=== PATIENT | female | born 1965 | race Caucasian/White ===

== ENCOUNTER 2019-09-22 18:44 | Inpatient (IN) | payer OTHER, SELFPAY ==
--- NOTE | ~2019-09-22 | XR_ITS ---
EXAMINATION: XR chest 2V EXAM DATE: 09/22/2019 19:36 INDICATION: High blood sugar. TECHNIQUE: Frontal and lateral projections of the chest obtained and reviewed. Comparison is made to prior examination from 02/05/2016. FINDINGS: The lungs are clear. There are no pleural effusions. The cardiomediastinal silhouette is within normal limits. There is no pneumothorax suspected. The bones and soft tissues are unremarkab le. IMPRESSION: No acute cardiopulmonary findings. Reviewed, dictated and finalized at location A.
[2019-09-22 18:50] VITALS: BP 96/54; PULSE 89; RESP 20; TEMP 37.1; O2SAT 98
[2019-09-22 18:58] LABS: Glucose Point of Care 306 (65-105)
--- NOTE | 2019-09-22 19:04 | ECG_ITS ---
Measurements Intervals [place] Rate: 80 P: 52 MI: 166 QRS: -14 QRSD: 93 T: 1 QT: 403 QTc: 467 Interpretive Statements SINUS RHYTHM DELAYED PRECORDIAL R/S TRANSITION VOLTAGE CRITERIA FOR LVH BORDERLINE T WAVE ABNORMALITY- ANT/INF LEADS BASELINE ARTIFACT- I, II, III, AVR, AVL, AVF, V1-V2 BORDERLINE ECG Electronically Signed On 09-24-2019 7:16:36 CDT by Ever Hamilton D.O.
[2019-09-22] MEDS: ONDANSETRON INJ 4 MG/2 ML VIAL IV PUSH (19:15)
[2019-09-22] MEDS: KETOROLAC 30 MG/ML VIAL (*BKC) IV PUSH (19:17)
[2019-09-22 19:34] LABS: Base Excess ABG -3.9 mmol/L (0-2); Oxygen Content ABG 18.5 %vol (16.0-22.0); Oxygen Saturation ABG 97.2 % (95-97); Oxyhemoglobin 96.5 % (94-100); PCO2 ABG 25.2 mmHg (35-45); PO2 ABG 84.8 mmHg (80-90); Site Drawn RIGHT RADIAL; Total Hemoglobin 13.6 g/dL; pH ABG 7.47 (7.35-7.45)
[2019-09-22 19:35] LABS: Hematocrit 35.9 % (35.0-49.0); Hemoglobin 12.8 g/dL (12.0-15.0); Immature Platelet Fraction Pct 5.3 % (1.0-7.0); Mean Corpuscular HGB Conc 35.7 g/dL (32.0-36.0); Mean Corpuscular Hemoglobin 29.8 pg (27.0-31.0); Mean Corpuscular Volume 83.7 fL (78.0-102.0); Mean Platelet Volume 11.4 fl (9.2-11.8); Platelet Count Result 73 K/mm3 (150-420); Red Blood Count 4.29 M/mm3 (4.20-5.40); Red Cell Distribution Width 13.5 % (11.6-14.4); White Blood Count 8.8 K/mm3 (4.8-10.8)
[2019-09-22 19:35] LABS: Device ROOM AIR; Modified Allen's Test Pass
[2019-09-22] MEDS: SODIUM CHLORIDE 0.9% IV 1,000 ML 999 ML IV CONT ×2 (19:36→21:46)
[2019-09-22 19:50] LABS: Alanine Aminotransferase 29 U/L (14-59); Albumin Level 2.6 g/dL (3.4-5.0); Alkaline Phosphatase 136 U/L (46-116); Aspartate Amino Transferase 27 U/L (15-37); Bilirubin,Total 1.5 mg/dL (0.00-1.00); Blood Urea Nitrogen 50 mg/dL (7-18); Calcium 8.2 mg/dL (8.5-10.1); Carbon Dioxide 23 mmol/L (21-32); Chloride 86 mmol/L (98-108); Estimated CRCL calculation 28 ml/min; Estimated Glomerular Filt Rate 26; Glucose 304 mg/dL (70-99); Magnesium 1.9 mg/dL (1.8-2.4); Osmolality Calculated 282 mOsm/kg (285-295); Phosphorus 2.6 mg/dL (2.6-4.7); Sodium 124 mmol/L (136-145)
[2019-09-22 19:55] LABS: Band Neutrophils Percent 8 % (0-6); Basophils Percent Manual 0 % (0-1); Eosinophils Absolute Manual 0.08 K/mm3 (0.02-0.5); Eosinophils Percent Manual 1 % (1-6); Lymphocytes Absolute Manual 0.44 K/mm3 (1.1-4.5); Lymphocytes Percent Manual 5 % (18-44); Monocytes Absolute Manual 0.96 K/mm3 (0.1-0.90); Monocytes Percent Manual 11 % (3-9); Neutrophils Percent Manual 75 % (46-73); Platelet Estimate Decreased (Adequate); Total Cells Counted 100
[2019-09-22 19:56] LABS: Lactic Acid 4.8 mmol/L (0.4-2.0)
--- NOTE | 2019-09-22 19:56 | ED.GENADULT ---
HPI - General Adult General Chief complaint: Medical Clearance Stated complaint: headache, nausea History of Present Illness HPI narrative: this is a 54-year-old female with history of diabetes presents with nausea vomiting and episode of diarrhea with a headache that she rates at 8/10, and 2 or 3 days ago with nausea and vomiting others currently no abdominal pain there is some according to patient subjective fever at home currently afebrile here in the emergency department denies chest pain no shortness of breath, there is no blurry vision no neurological deficits patient has had a higher blood sugar at home and recurrent blood sugar level is 306, with a blood pressure of 96/54. and a brain surgery for a AVM approximately 10 years ago. Onset (ago): hour(s) Location: head ( Headache) Severity: moderate Severity scale (1-10): 8 Quality: dull Relieving factors: none Exacerbating factors: none Associated symptoms: headaches, loss of appetite and nausea/vomiting Treatments prior to arrival: none Related Data Home Medications Medication Instructions Recorded Confirmed citalopram 20 mg PO DAILY 09/22/19 09/22/19 levothyroxine 112 mcg PO DAILY 09/22/19 09/22/19 lisinopril-hydrochlorothiazide 1 tablet PO DAILY 09/22/19 09/22/19 metformin 500 mg PO BID 09/22/19 09/22/19 Allergies Allergy/AdvReac Type Severity Reaction Status Date / Time Sulfa (Sulfonamide AdvReac Unknown Verified 09/22/19 19:12 Antibiotics) [facility] Past Medical History Medical History (Updated 09/22/19 @ 20:19 by Thomas Castaneda MD) Diabetes mellitus HTN (hypertension) Hypothyroidism (acquired) Exam Const: General: no acute distress Orientation/consciousness: patient oriented x3 HENMT: Head: normal to inspection Eyes: Conjunctivae: conjunctivae normal Pupils: Equal, round and reactive pupils present EOM: EOMs intact bilaterally Neck: Neck: normal visual inspection Chest: Chest palpation & inspection: normal inspection of the chest Resp: Effort & Inspection: normal respiratory effort Auscultation: clear to auscultation bilaterally Cardio: Rate: regular rate Rhythm: regular rhythm GI: GI Palp: Yes Soft to palpation Percussion: Yes normal to percussion Auscultation: normal bowel sounds : General: Yes no CVA tenderness Urinary Catheter: Urinary Catheter: patent and draining Back/Spine/Pelvis: Back: no CVA tenderness Skin: General skin exam: normal color Rashes: no rashes Neuro: General: patient oriented x3, moves all extremities, no meningeal signs and no focal motor deficits Extrem: General: normal to inspection Psych: Mental Status: mental status grossly normal Course Course Emergency Course: Reassessment of patient headache is some marginally better from an 8/10 to about a 6/10 nausea is improved her blood pressure systolic is in the mid 90s currently the patient appears more comfortable and discussed the fact that she needs to be admitted because of her low potassium, and her low sodium. Vital Signs Vital signs: Vital Signs Temperature 37.1 C 09/22/19 18:50 Pulse Rate 89 09/22/19 18:50 Respiratory Rate 20 09/22/19 18:50 Blood Pressure 96/54 L 09/22/19 18:50 Pulse Oximetry 98 09/22/19 18:50 Temperature 37.1 C 09/22/19 18:50 Pulse Rate 89 09/22/19 18:50 Respiratory Rate 20 09/22/19 18:50 Blood Pressure 96/54 L 09/22/19 18:50 Pulse Oximetry 98 09/22/19 18:50 Medical Decision Making Vital Signs Vital Signs: Vital Signs Temperature 37.1 C 09/22/19 18:50 Pulse Rate 89 09/22/19 18:50 Respiratory Rate 20 09/22/19 18:50 Blood Pressure 96/54 L 09/22/19 18:50 Pulse Oximetry 98 09/22/19 18:50 Temperature 37.1 C 09/22/19 18:50 Pulse Rate 89 09/22/19 18:50 Respiratory Rate 20 09/22/19 18:50 Blood Pressure 96/54 L 09/22/19 18:50 Pulse Oximetry 98 09/22/19 18:50 Lab Data Lab results reviewed: Yes I reviewed the patient's lab results. Res
[2019-09-22 19:58] LABS: Thyroid Stimulating Hormone 2.93 uIU/mL (0.36-3.74); Troponin I < 0.02 ng/mL (0.00-0.056)
--- NOTE | 2019-09-22 20:04 | PC.NURSE ---
pt resting eyes closed, fan on per request
[2019-09-22 20:11] VITALS: BP 94/48; PULSE 81; RESP 18; TEMP 37.1; O2SAT 97
--- NOTE | 2019-09-22 20:25 | ADMGEN ---
This patient, Rosemary Romeo, was admitted to 2nd Floor Room 203-2. Patient/family oriented to hospital policies and general routines including ID bracelet, bed and alarms, visiting hours, pain management, procedures, bathroom and other care routines, personal items, smoking policy, room service/diet, and visiting hours. Valuables list has been completed. Information on how to activate the Rapid Response Team has been discussed. Patient/Family are encouraged to report perceived risks to care and to ask questions if they do not understand what they are told or what they should do.
[2019-09-22 20:30] VITALS: PULSE 80
[2019-09-22] MEDS: KCL 20 MEQ/SW 100 ML 100 ML 50 MEQ IVPB (20:57)
[2019-09-22] MEDS: POTASSIUM CHLORIDE 20 MEQ TABLET 40 MEQ PO (21:00)
[2019-09-22 21:09] VITALS: BP 99/56; PULSE 78; RESP 18; TEMP 36.3; O2SAT 99
[2019-09-22 21:12] VITALS: BMI 33.7
[2019-09-22 21:34] LABS: Glucose Point of Care 259 (65-105)
[2019-09-22 22:29] LABS: Add Urine Microscopic? YES; Appearance Urine Cloudy (Clear); Bilirubin Urine Negative (Negative); Blood Urine 3+ (Negative); Color Urine Yellow (Yellow); Glucose Urine UA Trace (Negative); Ketones Urine Negative (Negative); Leukocyte Esterase Ur 3+ (Negative); Nitrate Urine Negative (Negative); Protein Urine 2+ (Negative); pH Urine 5.5 (5.0-8.0)
[2019-09-22 22:37] LABS: Bacteria Urine 3+ /hpf; Squamous Epithelial Cell Urine Moderate /hpf (Few); WBC Urine >75 /hpf (0-3)
[2019-09-22 22:38] LABS: Mucus Urine None seen /lpf; White Blood Cell Casts Urine Present /lpf
[2019-09-22] MEDS: SODIUM CHLORIDE 0.9% IV 1,000 ML 100 ML IV CONT (23:22)
[2019-09-22 23:31] VITALS: BP 105/57; PULSE 63; RESP 18; TEMP 36.7; O2SAT 96
[2019-09-22 23:47] VITALS: PULSE 85
[2019-09-23 04:00] VITALS: BP 98/49; PULSE 78; PULSE 80; RESP 20; TEMP 36.6; O2SAT 99
[2019-09-23] MEDS: LEVOTHYROXINE SODIUM 112 MCG TABLET PO (05:44)
[2019-09-23 05:53] LABS: Hematocrit 38.7 % (35.0-49.0); Hemoglobin 13.3 g/dL (12.0-15.0); Immature Platelet Fraction Pct 4.5 % (1.0-7.0); Mean Corpuscular HGB Conc 34.4 g/dL (32.0-36.0); Mean Corpuscular Hemoglobin 29.6 pg (27.0-31.0); Mean Corpuscular Volume 86.2 fL (78.0-102.0); Mean Platelet Volume 11.7 fl (9.2-11.8); Platelet Count Result 70 K/mm3 (150-420); Red Blood Count 4.49 M/mm3 (4.20-5.40); Red Cell Distribution Width 13.6 % (11.6-14.4); White Blood Count 7.5 K/mm3 (4.8-10.8)
[2019-09-23 06:04] LABS: Lactic Acid Reflex 2.1 mmol/L (0.4-2.0)
[2019-09-23 06:15] LABS: Alanine Aminotransferase 29 U/L (14-59); Albumin Level 2.4 g/dL (3.4-5.0); Alkaline Phosphatase 138 U/L (46-116); Anion Gap 16.8 mmol/L (7-16); Aspartate Amino Transferase 28 U/L (15-37); Bilirubin,Total 1.1 mg/dL (0.00-1.00); Blood Urea Nitrogen 46 mg/dL (7-18); Calcium 7.6 mg/dL (8.5-10.1); Carbon Dioxide 22 mmol/L (21-32); Chloride 95 mmol/L (98-108); Estimated CRCL calculation 39 ml/min; Estimated Glomerular Filt Rate 36; Glucose 269 mg/dL (70-99); Osmolality Calculated 290 mOsm/kg (285-295); Potassium 3.8 mmol/L (3.5-5.1); Sodium 130 mmol/L (136-145); Total Protein 6.2 g/dL (6.4-8.2)
[2019-09-23 07:04] LABS: Band Neutrophils Percent 5 % (0-6); Eosinophils Absolute Manual 0.07 K/mm3 (0.02-0.5); Eosinophils Percent Manual 1 % (1-6); Lymphocytes Absolute Manual 0.75 K/mm3 (1.1-4.5); Lymphocytes Percent Manual 10 % (18-44); Monocytes Absolute Manual 0.75 K/mm3 (0.1-0.90); Monocytes Percent Manual 10 % (3-9); Neutrophils Absolute Manual 5.92 K/mm3 (1.7-7.2); Neutrophils Percent Manual 74 % (46-73); Platelet Estimate Decreased (Adequate); Total Cells Counted 100
[2019-09-23 07:51] VITALS: BP 91/53; PULSE 79; RESP 18; TEMP 36.4; O2SAT 96
[2019-09-23 07:51] LABS: Reflex Lactic Acid Yes or No No Lactic Reflex
[2019-09-23] MEDS: CITALOPRAM HYDROBROMIDE 20 MG TABLET PO (08:27)
[2019-09-23] MEDS: POTASSIUM CHLORIDE 20 MEQ PACKET (FOR LIQUID) 40 MEQ PO (08:28)
[2019-09-23] MEDS: SODIUM CHLORIDE 0.9% IV 1,000 ML 100 ML IV CONT ×2 (10:06→19:30)
[2019-09-23 11:26] VITALS: BP 101/54; PULSE 77; RESP 18; TEMP 36.4; O2SAT 96
[2019-09-23 11:26] LABS: Glucose Point of Care 293 (65-105)
--- NOTE | 2019-09-23 12:22 | PM.IMHP ---
H&P: HPI History of Present Illness Chief complaint: headache, nausea Narrative: Rosemary Romeo is a 54 year old female that presented with n/v, diarrhea and hyperglycemia. she has a hx of DM, HTN and hypothyroidism. According to patient she went out of time on Tuesday for work and started feeling bad. According to patient it started with a bad headache.She returned home the following day and was unable to eat due to n/v, she also developed diarrhea , with a subjective fever , fatigue and a elevated BS. by tuesday her condition did not improve so she decided to go to ED. While in the Ed patient bs was greater than 300, with abnormal electrolytes. Her lactic acid and anion gap was elevated. Her UA indicated glucose, protein, leukocytes and bacteria. She did admit to urine frequence .Her cxr was unremarkable . her vital signs are as followed 91/53,79,18,97.6,96% ra. She is being admitted for gastroenteritis, dehydration and hyperglemia. At this time she denies any n/v since admission, sob, cp , headache, diarrhea or abd pain. Patient will possible discharge tomorrow. Her condition is improving. Review of Systems Constitutional: Constitutional: Reports fatigue, Reports fever(s), Reports headache(s), Reports lethargy, Reports poor appetite and Reports weakness Cardiovascular: Cardiovascular: Reports no additional cardiovascular complaints, Denies chest pain, Denies dyspnea and Denies dyspnea on exertion Respiratory: Respiratory: Reports no additional respiratory complaints, Denies chest congestion, Denies cough and Denies dyspnea on exertion Gastrointestinal: Gastrointestinal: Reports change in bowel habits, Denies constipation, Reports diarrhea, Reports nausea, Reports vomiting and Denies hematemesis Genitourinary: Genitourinary: Denies hematuria, Denies dysuria, Denies urinary incontinence, Reports urinary hesitancy and Reports urinary urgency Musculoskeletal: Musculoskeletal: Reports no additional musculoskeletal complaints, Denies back pain and Denies arthralgias Integumentary/Breasts: Skin/Breast: Reports system reviewed and no additional complaints, except as docu Neurologic: Reports system reviewed and no additional complaints, except as documented, Denies burning sensations, Denies confusion, Denies vertigo, Denies dizziness, Denies syncope and Denies frequent falls Psychiatric: Psychiatric: Reports no additional psychiatric complaints, Denies anxiety, Denies confusion and Denies depression Endocrine: Endocrine: Reports no additional endocrine complaints, Reports fatigue, Denies polyphagia, Denies polydipsia and Reports polyuria Hematologic/Lymphatic: Hematologic/Lymphatic: Reports no additional hematologic/lymphatic complaints Allergic/Immunologic: Allergic/Immunologic: Reports no additional allergic/immunologic complaints PMF Social History Social History Smoking status: Never smoker Second hand tobacco smoke exposure: Yes Alcohol intake: never Substance use: never Gender identity (if verbalized by the patient): Female Spiritual care concerns: No Meds Home Medications and Allergies Home Medications Medication Instructions Recorded Confirmed Type citalopram 20 mg PO DAILY 09/22/19 09/22/19 History levothyroxine 112 mcg PO DAILY 09/22/19 09/22/19 History lisinopril-hydrochlorothiazide 1 tablet PO DAILY 09/22/19 09/22/19 History metformin 500 mg PO BID 09/22/19 09/22/19 History Allergies Allergy/AdvReac Type Severity Reaction Status Date / Time Sulfa (Sulfonamide AdvReac Unknown Verified 09/22/19 19:12 Antibiotics) Vital Signs Vital Signs - 24 hr 09/22/19 18:50 09/22/19 20:11 09/22/19 20:30 Temperature 98.7 F 98.7 F Pulse Rate 89 81 80 Respiratory Rate 20 18 Blood Pressure 96/54 L 94/48 L Pulse Oximetry 98 97 09/22/19 21:09 09/22/19 23:31 09/22/19 23:47 Temperature 97.3 F L 98.1 F Pulse Rate 78 63 85 Respiratory Rate 18
--- NOTE | 2019-09-23 15:34 | PC.NURSE ---
Warm blanket given, denies needs, water refilled at this time, fluids infusing
[2019-09-23 15:35] VITALS: BP 105/55; PULSE 79; PULSE 80; RESP 18; TEMP 36.4; O2SAT 95
[2019-09-23 16:47] LABS: Glucose Point of Care 308 (65-105)
--- NOTE | 2019-09-23 18:38 | PC.NURSE ---
Resting quietly, up independent to bathroom as needed, no n/v, appetite fair, telemetry noted SR, personal items and call light inr each
[2019-09-23 18:58] LABS: Lactic Acid 1.5 mmol/L (0.4-2.0)
[2019-09-23 20:00] VITALS: BP 116/60; PULSE 86; RESP 18; TEMP 36.4; O2SAT 98
--- NOTE | 2019-09-23 20:02 | PM.EVENT ---
Event Note Event Note Event Note: Patient states she feels much better today although she is still having some abdominal discomfort and diarrhea. states her headache is all but resolved. She has been eating and drinking today. Alert and oriented. Mucous membranes moist. Regular rate and rhythm without murmur or gallop. Lungs clear to auscultation. mild diffuse abdominal tenderness without guarding, rebound or distention. Continues to have lactic acidosis and azotemia. Continue IV fluids. Recheck lactic acid later today. I have reviewed the chart and examined the patient. I discussed the patient with Shanice Cameron APN and agree with her assessment plan.
[2019-09-23] MEDS: ZOLPIDEM TARTRATE 5 MG TABLET PO (20:24)
[2019-09-23 21:18] LABS: Glucose Point of Care 302 (65-105)
[2019-09-24] VITALS: BP 121/64; PULSE 86; RESP 18; TEMP 36.6; O2SAT 98
[2019-09-24 04:00] VITALS: BP 130/70; PULSE 84; RESP 18; TEMP 36.5; O2SAT 98
[2019-09-24 05:32] LABS: Hematocrit 33.5 % (35.0-49.0); Hemoglobin 11.7 g/dL (12.0-15.0); Immature Platelet Fraction Pct 3.5 % (1.0-7.0); Mean Corpuscular HGB Conc 34.9 g/dL (32.0-36.0); Mean Corpuscular Hemoglobin 29.2 pg (27.0-31.0); Mean Corpuscular Volume 83.5 fL (78.0-102.0); Mean Platelet Volume 11.4 fl (9.2-11.8); Platelet Count Result 89 K/mm3 (150-420); Red Blood Count 4.01 M/mm3 (4.20-5.40); Red Cell Distribution Width 13.4 % (11.6-14.4); White Blood Count 8.8 K/mm3 (4.8-10.8)
[2019-09-24] MEDS: LEVOTHYROXINE SODIUM 112 MCG TABLET PO (05:44)
[2019-09-24] MEDS: SODIUM CHLORIDE 0.9% IV 1,000 ML 100 ML IV CONT (05:45)
[2019-09-24 05:58] LABS: Alanine Aminotransferase 29 U/L (14-59); Albumin Level 2.2 g/dL (3.4-5.0); Alkaline Phosphatase 148 U/L (46-116); Anion Gap 15.4 mmol/L (7-16); Aspartate Amino Transferase 34 U/L (15-37); Bilirubin,Total 0.9 mg/dL (0.00-1.00); Blood Urea Nitrogen 23 mg/dL (7-18); Calcium 7.6 mg/dL (8.5-10.1); Carbon Dioxide 22 mmol/L (21-32); Chloride 94 mmol/L (98-108); Estimated CRCL calculation 57 ml/min; Estimated Glomerular Filt Rate 58; Glucose 252 mg/dL (70-99); Magnesium 1.9 mg/dL (1.8-2.4); Osmolality Calculated 278 mOsm/kg (285-295); Potassium 3.4 mmol/L (3.5-5.1); Sodium 128 mmol/L (136-145); Total Protein 5.7 g/dL (6.4-8.2)
[2019-09-24 05:59] LABS: Lactic Acid 1.7 mmol/L (0.4-2.0)
--- NOTE | 2019-09-24 06:09 | PC.NURSE ---
Lab called to report blood culture results on patient.
--- NOTE | 2019-09-24 06:14 | PC.NURSE ---
Dr. Storm notified of pt's blood culture results. No new orders at this time.
[2019-09-24 07:42] LABS: Glucose Point of Care 272 (65-105)
[2019-09-24 08:00] VITALS: BP 132/70; PULSE 82; PULSE 86; RESP 16; TEMP 36.4; O2SAT 97
[2019-09-24] MEDS: CITALOPRAM HYDROBROMIDE 20 MG TABLET PO (08:22)
[2019-09-24] MEDS: LORATADINE 10 MG TABLET PO (08:22)
[2019-09-24] MEDS: POTASSIUM CHLORIDE 20 MEQ PACKET (FOR LIQUID) 40 MEQ PO (08:30)
[2019-09-24] MEDS: LORATADINE 10 MG TABLET (09:45)
[2019-09-24] MEDS: LOPERAMIDE HCL 2 MG CAPSULE 4 MG PO (09:45)
[2019-09-24] MEDS: POTASSIUM CHLORIDE 20 MEQ TABLET 40 MEQ (09:45)
--- NOTE | 2019-09-24 10:21 | P.DS_ITS ---
DS: Admitting Diagnosis Admitting Diagnosis Admitting Diagnosis: Dehydration, UTI, gastroenteritis <YANA Suazo-C - Last Filed: 09/24/19 10:34> DS: Discharge Diagnosis Discharge Diagnosis (1) Acute dehydration: Code(s): E86.0 - Dehydration <YANA Suazo-C - Last Filed: 09/24/19 10:34> Status: Acute <YANA Suazo-C - Last Filed: 09/24/19 10:34> Assessment and Plan: * secondary to n/v/d causes by gastroenteritis * resolved * encourage po intake <Prasanna Cameron TRACK SUPERINTENDENT-C - Last Filed: 09/24/19 10:34> (2) Acute renal failure: Qualifiers: Acute renal failure type: unspecified Qualified Code(s): N17.9 - Acute kidney failure, unspecified <Prasanna Cameron YANA-C - Last Filed: 09/24/19 10:34> Code(s): N17.9 - Acute kidney failure, unspecified <Prasanna Cameron YANA-C - Last Filed: 09/24/19 10:34> Status: Acute <Prasanna Cameron YANA-C - Last Filed: 09/24/19 10:34> Assessment and Plan: * secondary to dehydration * renal function has improved since admission * <Prasanna Cameron YANA-C - Last Filed: 09/24/19 10:34> (3) Acute hypokalemia: Code(s): E87.6 - Hypokalemia <Prasanna Cameron YANA-C - Last Filed: 09/24/19 10:34> Status: Acute <Prasanna Cameron YANA-C - Last Filed: 09/24/19 10:34> Assessment and Plan: * discharge with 5day of potassium <Prsaanna Cameron YANA-C - Last Filed: 09/24/19 10:34> (4) Hypothyroidism (acquired): Code(s): E03.9 - Hypothyroidism, unspecified <Prasanna Cameron TRACK SUPERINTENDENT-C - Last Filed: 09/24/19 10:34> Status: Acute <Prasanna Cameron TRACK SUPERINTENDENT-C - Last Filed: 09/24/19 10:34> Assessment and Plan: * cont levothyroxine <YANA Suazo-C - Last Filed: 09/24/19 10:34> (5) HTN (hypertension): Code(s): I10 - Essential (primary) hypertension <Prasanna Cameron YANA-C - Last Filed: 09/24/19 10:34> Status: Acute <YANA Suazo-C - Last Filed: 09/24/19 10:34> Assessment and Plan: * stable <Prasanna Cameron YANA-C - Last Filed: 09/24/19 10:34> (6) Diabetes mellitus: Code(s): E11.9 - Type 2 diabetes mellitus without complications <Prasanna Cameron YANA-C - Last Filed: 09/24/19 10:34> Status: Acute <Prasanna Cameron YANA-C - Last Filed: 09/24/19 10:34> Assessment and Plan: * patient will follow-up with primary care physician for insulin adjustments <Prasanna Cameron YANA-C - Last Filed: 09/24/19 10:34> (7) UTI (urinary tract infection): Code(s): N39.0 - Urinary tract infection, site not specified <Prasanna Cameron YANA-C - Last Filed: 09/24/19 10:34> Status: Acute <Prasanna Cameron YANA-C - Last Filed: 09/24/19 10:34> Assessment and Plan: * UA with leukocytes, and bacterial * patient will discharge with Macrobid * UA culture pending <Prasanna Cameron YANA-C - Last Filed: 09/24/19 10:34> (8) Gastroenteritis: Code(s): K52.9 - Noninfective gastroenteritis and colitis, unspecified <Prasanna Cameron YANA-C - Last Filed: 09/24/19 10:34> Status: Acute <Prasanna Cameron TRACK SUPERINTENDENT-C - Last Filed: 09/24/19 10:34> Assessment and Plan: * patient labs have normalized * discharge with Zofran <Prasanna Cameron, TRACK SUPERINTENDENT-C - Last Filed: 09/24/19 10:34> DS: Summary Hospital Course Hospital Course: H&P from admission on 09/21 Narrative: Rosemary Romeo is a 54 year old female that presented with n/v, d
--- NOTE | 2019-09-24 10:21 | PM.DS ---
DS: Admitting Diagnosis Admitting Diagnosis Admitting Diagnosis: Dehydration, UTI, gastroenteritis <YANA Suazo-C - Last Filed: 09/24/19 10:34> DS: Discharge Diagnosis Discharge Diagnosis (1) Acute dehydration: Code(s): E86.0 - Dehydration <YANA Suazo-C - Last Filed: 09/24/19 10:34> Status: Acute <YANA Suazo-C - Last Filed: 09/24/19 10:34> Assessment and Plan: secondary to n/v/d causes by gastroenteritis resolved encourage po intake <Prasanna Cameron CHIEF METER READER-C - Last Filed: 09/24/19 10:34> (2) Acute renal failure: Qualifiers: Acute renal failure type: unspecified Qualified Code(s): N17.9 - Acute kidney failure, unspecified <Prasanna Cameron YANA-C - Last Filed: 09/24/19 10:34> Code(s): N17.9 - Acute kidney failure, unspecified <Prasanna Cameron CHIEF METER READER-C - Last Filed: 09/24/19 10:34> Status: Acute <Prasanna Cameron CHIEF METER READER-C - Last Filed: 09/24/19 10:34> Assessment and Plan: secondary to dehydration renal function has improved since admission <Prasanna Cameron YANA-C - Last Filed: 09/24/19 10:34> (3) Acute hypokalemia: Code(s): E87.6 - Hypokalemia <Prasanna Cameron YANA-C - Last Filed: 09/24/19 10:34> Status: Acute <Prasanna Cameron CHIEF METER READER-C - Last Filed: 09/24/19 10:34> Assessment and Plan: discharge with 5day of potassium <Prasanna Cameron CHIEF METER READER-C - Last Filed: 09/24/19 10:34> (4) Hypothyroidism (acquired): Code(s): E03.9 - Hypothyroidism, unspecified <Prasanna Cameron CHIEF METER READER-C - Last Filed: 09/24/19 10:34> Status: Acute <Prasanna Cameron CHIEF METER READER-C - Last Filed: 09/24/19 10:34> Assessment and Plan: cont levothyroxine <Prasanna Cameron YANA-C - Last Filed: 09/24/19 10:34> (5) HTN (hypertension): Code(s): I10 - Essential (primary) hypertension <Prasanna Cameron YANA-C - Last Filed: 09/24/19 10:34> Status: Acute <Prasanna Cameron YANA-C - Last Filed: 09/24/19 10:34> Assessment and Plan: stable <YANA Suazo-C - Last Filed: 09/24/19 10:34> (6) Diabetes mellitus: Code(s): E11.9 - Type 2 diabetes mellitus without complications <Prasanna Cameron YANA-C - Last Filed: 09/24/19 10:34> Status: Acute <Prasanna Cameron YANA-C - Last Filed: 09/24/19 10:34> Assessment and Plan: patient will follow-up with primary care physician for insulin adjustments <Prasanna Cameron YANA-C - Last Filed: 09/24/19 10:34> (7) UTI (urinary tract infection): Code(s): N39.0 - Urinary tract infection, site not specified <Prasanna Cameron YANA-C - Last Filed: 09/24/19 10:34> Status: Acute <Prasanna Cameron YANA-C - Last Filed: 09/24/19 10:34> Assessment and Plan: UA with leukocytes, and bacterial patient will discharge with Macrobid UA culture pending <Prasanna Cameron YANA-C - Last Filed: 09/24/19 10:34> (8) Gastroenteritis: Code(s): K52.9 - Noninfective gastroenteritis and colitis, unspecified <Prasanna Cameron CHIEF METER READER-C - Last Filed: 09/24/19 10:34> Status: Acute <Prasanna Cameron YANA-C - Last Filed: 09/24/19 10:34> Assessment and Plan: patient labs have normalized discharge with Zofran <Prasanna Cameron CHIEF METER READER-C - Last Filed: 09/24/19 10:34> DS: Summary Hospital Course Hospital Course: H&P from admission on 09/21 Narrative: Rosemary Romeo is a 54 year old female that presented with n/v, diarrhea and hyperglycemia. she has a hx of DM, HTN and hypothyroidism. According to patient she went out of time on Tuesday for work and started feeling bad. According to patient it started with a bad headache.She returned home the following day and was unable to eat due to n/v, she also developed diarrhea , with a subjective fever , fatigue and a elevated BS. by tuesday
--- NOTE | 2019-09-24 10:50 | PC.NURSE ---
discharge instructions given. pt voiced understanding. questions answered. pt attempted to call for a ride. unable to get ahold of at this time. pt will attempt in a few minutes.
[2019-09-28 07:06] LABS: Reference Lab Test Name Beta-Hydroxybutyrate
== END 2019-09-24 11:00 | disposition home or self-care (01) | DRG 683 ==
LOC: CHSED 20:12 → CHS2ND 20:13
PROVIDERS: Nurse Practitioner; Admitting Provider Emergency Medicine; Emergency Provider Emergency Medicine; Visit Provider Emergency Medicine
DX: N17.9 Acute kidney failure, unspecified (principal); N39.0 Urinary tract infection, site not specified; R78.81 Bacteremia; E87.1 Hypo-osmolality and hyponatremia; E86.0 Dehydration; E87.6 Hypokalemia; I10 Essential (primary) hypertension; E03.9 Hypothyroidism, unspecified; E11.65 Type 2 diabetes mellitus with hyperglycemia
CPT/HCPCS: 36415; 36600; 71046; 80053; 81001; 82010; 82805; 83605; 83735; 84100; 84443; 84484; 85025; 85027; 85055; 87040; 87077; 87086; 87088; 87186; 93005; 96361; 96374; 96375; 99285; A9270; J0696; J1815; J1885; J2405; J3480; J7030

== ENCOUNTER 2022-05-12 07:30 | Emergency (ER) | payer OTHER, SELFPAY ==
[2022-05-12 07:31] VITALS: BP 128/84; PULSE 84; RESP 16; TEMP 36.3; O2SAT 98
--- NOTE | 2022-05-12 07:37 | ED.EPISTAXIS ---
HPI - Epistaxis General Stated complaint: Rhinorocket removal Time Seen by Provider: 05/12/22 07:37 Source: patient and RN notes reviewed Mode of arrival: ambulatory Limitations: no limitations History of Present Illness HPI Narrative: patient had a rhino rocket placed on Tuesday night. Her PCP office was concerned about her history of liver failure and low platelets that they did want want to pull it out in the office. Location: left nostril Onset (ago): day(s) (2) Duration: intermittent Context: history of previous Related Data Home Medications Medication Instructions Recorded Confirmed citalopram 20 mg tablet 20 mg PO DAILY 09/22/19 09/22/19 levothyroxine 112 mcg tablet 112 mcg PO DAILY 09/22/19 09/22/19 lisinopril 20 1 tablet PO DAILY 09/22/19 09/22/19 mg-hydrochlorothiazide 25 mg tablet metformin 500 mg tablet 500 mg PO BID 09/22/19 09/22/19 Allergies Allergy/AdvReac Type Severity Reaction Status Date / Time Sulfa (Sulfonamide AdvReac Unknown Verified 09/22/19 19:12 Antibiotics) Review of Systems Review of Systems: All systems reviewed & are unremarkable except as noted in HPI and below PMFSH Past Medical History Medical History (Updated 05/12/22 @ 07:52 by Elroy Hager MD) Acute renal failure Diabetes mellitus HTN (hypertension) Hypothyroidism (acquired) Liver failure Surgical History Surgical History (Updated 05/12/22 @ 07:48 by Elroy Hager MD) AVM (arteriovenous malformation) 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 Social History Social History Smoking status: Never smoker Second hand tobacco smoke exposure: Yes Alcohol intake: never Substance use: never Gender identity (if verbalized by the patient): Female Spiritual care concerns: No Exam Const: General: healthy appearing, no acute distress and alert Nutritional Appearance: well nourished and obese Orientation/consciousness: patient oriented x3 Limitations: no limitations HENMT: Head: normal to inspection Ears: external ears normal Face/Nose/Sinus: Epistaxis present on the left anterior source and active bleeding Face and sinus: normal facial exam Mouth: Yes Normal oral and palatal mucosa present and Yes moist mucous membranes Eyes: Conjunctivae: conjunctivae normal Pupils: Equal, round and reactive pupils present EOM: EOMs intact bilaterally Neck: Neck: normal visual inspection Resp: Effort & Inspection: normal respiratory effort Auscultation: clear to auscultation bilaterally Cardio: Rate: regular rate Rhythm: regular rhythm GI: GI Palp: Yes Soft to palpation and No Tenderness to palpation present (GI) Auscultation: normal bowel sounds Back/Spine/Pelvis: Cervical Spine: cervical ROM normal Thoracic/Lumbar Spine: thoraco-lumbar ROM normal Skin: General skin exam: normal color Rashes: no rashes Neuro: General: patient oriented x3, moves all extremities, no focal motor deficits and CN's II-XI intact bilaterally Speech: normal speech Gait exam (Neuro): Normal gait present Extrem: General: normal to inspection and no clubbing, cyanosis or edema Psych: Mental Status: mental status grossly normal Affect: normal affect Attitude: cooperative Course Course Emergency Course: Hi deflated the balloon of her rhino rocket with a 10 mL syringe. She started having some active bleeding again. The saline was replaced and then a saline flush was used to add another 2 mL for a total of 7 mL of saline into the rhino rocket balloon. Patient advised to see her primary care or call ENT for further evaluation. Vital Signs Vital signs: Vital Signs Temperature 36.3 C L 05/12/22 07:31 Pulse Rate 84 05/12/22 07:31 Respiratory Rate 16 05/12/22 07:31 Blood Pressure 128/84 05/12/22 07:31 Pulse Oximetry 98 05/12/22 07:31 Oxygen Delivery Room Air 05/12/22 07:31 Temperature 36.3 C L 05/12/22 07:31 Pulse Rate 84 05/12/22 07:31 Respirator
[2022-05-12 07:55] VITALS: BP 128/84; PULSE 84; RESP 16; TEMP 36.3; O2SAT 98
== END 2022-05-12 08:03 | disposition home or self-care (01) ==
LOC: CHSED 08:00
PROVIDERS: Emergency Provider Emergency Medicine; PCP Nurse Practitioner
DX: R04.0 Epistaxis (principal); E11.9 Type 2 diabetes mellitus without complications; I10 Essential (primary) hypertension; E03.9 Hypothyroidism, unspecified
CPT/HCPCS: 99282

== ENCOUNTER 2024-03-20 17:38 | Inpatient (IN) | payer OTHER, SELFPAY ==
--- NOTE | ~2024-03-20 | MR_ITS ---
EXAMINATION: MR MRCP wo/w con/w 3D wo ind DATE: 03/22/2024 13:06 INDICATION: Acute decompensated liver failure. TECHNIQUE: Magnetic resonance imaging (MRI) of the abdomen was performed without and with 20 mL Multi Mukesh intravenous contrast. Sequences included coronal T2-weighted FS FSE, coronal T2-weighted FSE, a xial T1-weighted LAVA, coronal FS FIESTA, axial dual-echo T1-weighted SPGR, coronal lava-FLEX, sagitt al T2-weighted FSE, axial T2-weighted FSE, and axial DWI. Thick-slab T2-weighted FSE images were obta ined for magnetic resonance cholangiopancreatography (MRCP). Maximum intensity projection 3-D reconst ructions of the volumetric data were created by the technologist. Postcontrast sequences included cor onal LAVA-flex and time course of axial T1-weighted LAVA. COMPARISON: CT abdomen and pelvis 03/20/2024 FINDINGS: ABDOMEN MRI: The liver demonstrates heterogeneous signal intensity and surface nodularity, consistent with cirrhosis. The gallbladder is absent. There is severe splenomegaly. There is a periumbilical po rtacaval shunt. The pancreas and adrenal glands are normal. There is an 8 mm cyst in right kidney. Th ere is mild atrophy of left kidney. There is a moderate volume of ascites. There are no dilated loops of bowel. ABDOMEN MRCP: The common duct is normal and measures 10 mm. No choledocholithiasis. IMPRESSION: 1. Cirrhosis of the liver with portal venous hypertension. 2. Moderate volume of ascites. Reviewed, dictated and finalized at location A. ER OFF
--- NOTE | ~2024-03-20 | XR_ITS ---
XR chest 2V Ordering provider: Maria G Boswell PA-C History: 58 years Female with . liver disease, fluid overload . Comparison: None. FINDINGS: MEDIASTINUM: The cardiac silhouette is moderately enlarged. Congestive kendra. LUNGS: No infiltrates, effusions or pneumothorax. OTHER: No free air under the diaphragm. IMPRESSION: Cardiomegaly with congestive kendra. Cardiac decompensation is not excluded. No other definite abnormality. Reviewed, dictated and finalized at location A. SSIONS COUNSELOR
--- NOTE | ~2024-03-20 | CT_ITS ---
CT abdomen pelvis w con Ordering provider: Maria G Boswell PA-C History: 58 years Female with . abd pain, swelling, hx cirrhosis . Comparison: None. Technique: CT abdomen and pelvis with IV and without oral contrast. Automated exposure control and it erative reconstruction technique were employed. The dose-length product was 1205.88 mGy-cm. 100 mL Omnipaque 350 was given IV. Findings: VISUALIZED LOWER CHEST: Dependent atelectatic changes. Slight cardiomegaly. UPPER ABDOMINAL ORGANS: Liver: Liver cirrhosis. Portal hypertension with recanalization of the umbilical vein is noted. Gallbladder: Not visualized most likely surgically removed. Spleen: Splenomegaly. Stomach/duodenum: Small sliding hiatus hernia. Pancreas: Normal. Adrenals: Normal. Kidneys: Tiny cyst in the right kidney upper pole.. Left kidney is smaller than the right. PELVIC ORGANS: The bladder is normal. Calcified fibroid is seen in the uterus. BOWEL AND MESENTERY: Colon: No evidence of diverticulitis. Slight thickening of the transverse colon on the right and left side is noted. Appendix is not demonstrated. Small Bowel: Normal. No obstruction. Peritoneum/mesentery: No free air. Gross ascites is noted. No mesenteric lymphadenopathy. RETROPERITONEUM: Mild atheromatous disease of the abdominal aorta. No retroperitoneal lymphadenopat hy. MUSCULOSKELETAL: Superficial soft tissues: Edema is seen in the subcutaneous tissues bilaterally laterally. Otherwise, The superficial soft tissues are normal. Bones: Normal spine. IMPRESSION: 1. Liver cirrhosis. 2. Splenomegaly 3. Gross ascites. 4. Portal hypertension Reviewed, dictated and finalized at location A. RV[employer]OR ELECT[employer]IC MOTOR TESTING
--- NOTE | ~2024-03-20 | US_ITS ---
EXAMINATION: US paracentesis abd w/image DATE: 03/21/2024 12:21 INDICATION: Ascites. TECHNIQUE: The procedure and its risks, benefits, and alternatives were discussed with the patient. P otential risks discussed included bleeding and infection. The skin was prepped and draped in sterile fashion. 1% lidocaine was used for local anesthesia. Under ultrasound guidance, a 5 Fr catheter with trochar was advanced into the ascites in the right lower quadrant. Fluid was aspirated. The catheter was removed, and a dressing was applied. There were no immediate complications. FINDINGS: Ultrasound images demonstrate ascites and the catheter within the fluid. IMPRESSION: 1. Successful ultrasound-guided paracentesis yielding 1900 mL of yellow fluid. Reviewed, dictated and finalized at location A. AL LABORATORY WORKER
[2024-03-20 17:42] VITALS: BP 120/47; PULSE 66; RESP 18; TEMP 36.4; O2SAT 100
--- NOTE | 2024-03-20 18:47 | ECG_ITS ---
Test Date: 2024-03-20 19:00:02 Measurements Intervals [place] Rate: 66 P: 38 IN: 173 QRS: -18 QRSD: 94 T: 7 QT: 473 QTc: 496 Interpretive Statements SINUS RHYTHM VOLTAGE CRITERIA FOR LVH [MEETS CRITERIA IN ONE OF: R(aVL), S(V1), R(V5), R(V5/V6)+S(V1)] POSSIBLE ANTEROSEPTAL MYOCARDIAL INFARCTION , OF INDETERMINATE AGE [30 ms Q WAVE IN V1-V4] ABNORMAL ECG No previous ECG available for comparison Electronically Signed On 03-21-2024 10:54:36 [employer]OCIATE BUYER by Jin Betancourt M.D.
--- NOTE | 2024-03-20 18:49 | ED_ITS ---
HPI - Recheck/Abnormal Lab/Rx General Chief Complaint: Recheck/Abnormal Lab/Rx Stated Complaint: my liver labs are 7x the normal Time Seen by Provider: 03/20/24 18:40 Focused HPI: Patient is a 58-year-old your female who presents to the ER with abnormal lab values. She reports on the 08 of March and she was admitted to the hospital because she was swollen. Patient reports she had hep C back in the 80s, but has been told it had resolved after interferon injections. She reports she was hospitalized for approximately 1 week and they diagnosed her with esophageal varices, cirrhosis, and ascites. Patient was discharged on March 15. She reports she had a visit with her primary care provider yesterday and she had blood work drawn. Today patient's primary care provider called her and told her she needs to go to the ER because her liver enzymes are very high. Patient denies any pain, fevers, shortness of breath, chest pain. She does endorse bilateral lower extremity swelling. GENERAL: Well-appearing, well-nourished, and in no acute distress. HEAD: Normocephalic, atraumatic. CHEST: Clear to auscultation. ?No respiratory distress. HEART: Regular rate and rhythm.?Bilateral lower extremity swelling. NEURO: ?Alert and oriented x3. Patient screened in triage and initial orders placed.? ?Additional care and disposition to be based upon?diagnostic testing and treatment. Related Data Home Medications Medication Instructions Recorded Confirmed citalopram 20 mg tablet 40 mg PO DAILY 09/22/19 03/21/24 levothyroxine 112 mcg tablet 100 mcg PO DAILY 09/22/19 03/21/24 insulin degludec 100 unit/mL (3 10 unit subcut DAILY 03/21/24 03/21/24 mL) subcutaneous pen (Tresiba FlexTouch U-100 insulin) midodrine 5 mg tablet 1 mg PO BID PRN Hypotension 03/21/24 03/21/24 ondansetron 4 mg disintegrating 4 mg PO Q6H PRN nausea/vomiting 03/21/24 03/21/24 tablet pantoprazole 40 mg tablet,delayed 40 mg PO DAILY 03/21/24 03/21/24 release pen needle, diabetic 32 gauge x 03/21/24 03/21/24 (BD Darya 2nd Gen Pen Needle) trazodone 50 mg tablet 50 mg PO HS 03/21/24 03/21/24 Allergies Allergy/AdvReac Type Severity Reaction Status Date / Time succinylcholine Allergy Unknown Verified 03/21/24 00:10 Sulfa (Sulfonamide AdvReac Unknown Verified 03/21/24 00:10 Antibiotics) [facility] Past Medical History Medical History Acute renal failure Diabetes mellitus HTN (hypertension) Hypothyroidism (acquired) Liver failure Surgical History Surgical History AVM (arteriovenous malformation) 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 Family History Family History Father Acute myocardial infarction Diabetes mellitus Grandparent Acute myocardial infarction Mother Chronic obstructive pulmonary disease Social History Social History Smoking status: Never smoker Second hand tobacco smoke exposure: Yes Alcohol intake: never Substance use: never Do You Feel Safe in your Home?: Yes Lack of Transportation: No Lack of Food: Never True Current Housing: I Have Housing Concerned About Future Housing: No Difficulty Paying Gas/Electric Bills: No Difficulty Paying for Meds: No Currently Unemployed: No Education: Master's Degree or Higher Difficulty w/ Childcare or Family Care: No Gender identity (if verbalized by the patient): Female Spiritual care concerns: No Course Vital Signs Vital signs: Vital Signs Temperature 36.4 C L 03/20/24 17:42 Pulse Rate 66 03/20/24 17:42 Respiratory Rate 18 03/20/24 17:42 Blood Pressure 120/47 L 03/20/24 17:42 Pulse Oximetry 100 03/20/24 17:42 Oxygen Delivery Room Air 03/20/24 17:42 Temperature 37.1 C 03/23/24 04:15 Pulse Rate 74 03/23/24 08:37 Respiratory Rate 20 03/23/24 04:15 Blood Pressure 111/62 03/23/24 04:15 Pulse Oximetry 100 03/23/24 04:15 Oxygen Delivery Room Air 03/23/24 08:35 MDM - Recheck/Abnormal Lab/Rx Lab Data 03/23/24 05:48 03/23/24 05:48 Labs: Lab Results 03/20/24 03/20/24 03/21/24 Range/Units 19:39 20:57 06:21 WBC 2.5 L (4.5-10.0) K/mm3 RBC 2.62 L (4.2-5.4) M/mm3 Hgb 8.4 L (12.0-15.0) g/dL Hct 25.0 L (37.0-47.0) % MCV 95.4 (80-100) fl MCH 32.1 (26-34) pg MCHC 33.6 (32-36) g/dl RDW 18.6 H (11.5-14.5) % Plt Count 45 L (150-375) k/mm3 MPV 10.2 (7.4-10.4) fl Immature Gran % (Auto) 0.4 (0-0.5) % Neut % (Auto) 59.0 (45.5-73.1) % Lymph % (Auto) 15.7 L (18.3-44.2) % [place] % (Auto) 18.1 H (2.6-8.5) % Eos % (Auto) 5.6 H (0-4.4) % Baso % (Auto) 1.2 (0.2-1.2) % Lymph # (Auto) 0.39 L (0.9-3.2) K/mm3 [place] # (Auto) 0.5 (0.1-0.6) K/mm3 Eos # (Auto) 0.1 (0-0.3) K/mm3 Baso # (Auto) 0.0 (0.0-0.1) K/mm3 Abs Immat Gran (auto) 0.01 (0.00-0.031) K/mm3 Absolute Neuts (auto) 1.5 (1.3-6.7) K/mm3 Absolute Nucleated RBC 0.000 (0.0-0.012) K/mm3 Nucleated RBC % 0.0 (0.0-0.2) % Platelet Estimate Decreased (Adequate) % Immature Plt Fraction 2.5 (0.9-11.2) % Hypochromasia 1+ Poikilocytosis 1+ Anisocytosis Macrocytosis (NORMAL) Ovalocytes 1+ Karolyn Cells 1+ Schistocytes None seen PT 34.3 H (11.1-14.7) Seconds INR 3.3 APTT 48.4 H (22.3-36.8) Seconds Sodium 135 L (137-145) mmol/L Potassium 4.0 (3.4-5.0) mmol/L Chloride 104 (98-107) mmol/L Carbon Dioxide 24 (22-30) mmol/L Anion Gap 7 (4-12) mmol/L BUN 21 H (7-17) mg/dL Creatinine 1.50 H (0.7-1.0) mg/dL Estim Creat Clear Calc 40 ml/min Estimated GFR 36 L (59 - ) Glucose 168 H (65-110) mg/dL POC Capillary Glucose (65-105) mg/dl Hemoglobin A1c 5.0 (<5.7) % Calcium 8.3 L (8.4-10.2) mg/dL Magnesium (1.6-2.3) mg/dL Total Bilirubin 12.0 H (0.2-1.3) mg/dL AST 161 H (14-36) U/L ALT 132 H (6-35) U/L Alkaline Phosphatase 89 (38-126) U/L Troponin I < 0.012 (0.000-0.034) ng/mL Total Protein 6.0 L (6.3-8.2) g/dL Albumin 3.3 L (3.5-5.1) g/dL Lipase 248 (23-300) U/L TSH 0.329 L (0.465-4.680) uIU/mL Urine Color Dark yellow (Yellow) Urine Appearance Clear (Clear) Urine pH 5.5 (5.0-9.0) Ur Specific [place] 1.007 (1.001-1.035) Urine Protein Negative (Negative) mg/dL Urine Glucose (UA) Negative (Negative) mg/dL Urine Ketones Negative (Negative) mg/dL Ur Blood (Man) Negative (Negative) Urine Nitrate Negative (Negative) Urine Bilirubin Negative (Negative) Urine Urobilinogen 1.0 (<2.0) mg/dL Leukocyte Esterase Rfl Trace H (Negative) SUKH/UL Urine RBC 0-2 (0-2) /hpf Urine WBC 0-5 (0-3) /hpf Ur Squamous Epith Cells Few (Few) /hpf Urine Bacteria None seen /hpf Urine Casts 0-2 Peritoneal Source Peritoneal Color (Colorless) Peritoneal Appearance (Clear) Peritoneal RBC (0-39182) /uL Periton Nuc Cells (0-500) /uL Periton Neutrophils (0-25) % Periton Lymphocytes % Periton Mesothelial % Periton Macrophages % Peritoneal Tot Protein Peritoneal Albumin Peritoneal LDH Peritoneal Glucose Peritoneal Amylase 03/21/24 03/21/24 03/21/24 Range/Units 06:26 07:54 11:47 WBC 1.6 L* (4.5-10.0) K/mm3 RBC 2.40 L (4.2-5.4) M/mm3 Hgb 7.8 L (12.0-15.0) g/dL Hct 23.1 L (37.0-47.0) % MCV 96.3 (80-100) fl MCH 32.5 (26-34) pg MCHC 33.8 (32-36) g/dl RDW 18.6 H (11.5-14.5) % Plt Count 48 L (150-375) k/mm3 MPV 11.0 H (7.4-10.4) fl Immature Gran % (Auto) 0.0 (0-0.5) % Neut % (Auto) 55.5 (45.5-73.1) % Lymph % (Auto) 22.6 (18.3-44.2) % [place] % (Auto) 18.3 H (2.6-8.5) % Eos % (Auto) 3.0 (0-4.4) % Baso % (Auto) 0.6 (0.2-1.2) % Lymph # (Auto) 0.37 L (0.9-3.2) K/mm3 [place] # (Auto) 0.3 (0.1-0.6) K/mm3 Eos # (Auto) 0.1 (0-0.3) K/mm3 Baso # (Auto) 0.0 (0.0-0.1) K/mm3 Abs Immat Gran (auto) 0.00 (0.00-0.031) K/mm3 Absolute Neuts (auto) 0.9 L (1.3-6.7) K/mm3 Absolute Nucleated RBC 0.000 (0.0-0.012) K/mm3 Nucleated RBC % 0.0 (0.0-0.2) % Platelet Estimate Decreased (Adequate) % Immature Plt Fraction 3.0 (0.9-11.2) % Hypochromasia Poikilocytosis Anisocytosis 1+ Macrocytosis 1+ (NORMAL) Ovalocytes 1+ [place] Cells 1+ Schistocytes None seen PT (11.1-14.7) Seconds INR APTT (22.3-36.8) Seconds Sodium 135 L (137-145) mmol/L Potassium 4.1 (3.4-5.0) mmol/L Chloride 108 H (98-107) mmol/L Carbon Dioxide 23 (22-30) mmol/L Anion Gap 4 (4-12) mmol/L BUN 20 H (7-17) mg/dL Creatinine 1.40 H (0.7-1.0) mg/dL Estim Creat Clear Calc 42 ml/min Estimated GFR 39 L (59 - ) Glucose 137 H (65-110) mg/dL POC Capillary Glucose 167 H (65-105) mg/dl Hemoglobin A1c (<5.7) % Calcium 8.0 L (8.4-10.2) mg/dL Magnesium 1.9 (1.6-2.3) mg/dL Total Bilirubin 9.8 H (0.2-1.3) mg/dL AST 130 H (14-36) U/L ALT 114 H (6-35) U/L Alkaline Phosphatase 121 (38-126) U/L Troponin I (0.000-0.034) ng/mL Total Protein 5.0 L (6.3-8.2) g/dL Albumin 2.8 L (3.5-5.1) g/dL Lipase (23-300) U/L TSH (0.465-4.680) uIU/mL Urine Color (Yellow) Urine Appearance (Clear) Urine pH (5.0-9.0) Ur Specific [place] (1.001-1.035) Urine Protein (Negative) mg/dL Urine Glucose (UA) (Negative) mg/dL Urine Ketones (Negative) mg/dL Ur Blood (Man) (Negative) Urine Nitrate (Negative) Urine Bilirubin (Negative) Urine Urobilinogen (<2.0) mg/dL Leukocyte Esterase Rfl (Negative) SUKH/UL Urine RBC (0-2) /hpf Urine WBC (0-3) /hpf Ur Squamous Epith Cells (Few) /hpf Urine Bacteria /hpf Urine Casts Peritoneal Source Peritoneal fluid Peritoneal Color Yellow (Colorless) Peritoneal Appearance Clear (Clear) Peritoneal RBC < 2000 (0-66122) /uL Periton Nuc Cells 3 (0-500) /uL Periton Neutrophils 4 (0-25) % Periton Lymphocytes 81 % Periton Mesothelial 2 % Periton Macrophages 13 % Peritoneal Tot Protein Pending Peritoneal Albumin Pending Peritoneal LDH Pending Peritoneal Glucose Pending Peritoneal Amylase Pending Discharge Plan Discharge Clinical Impression: RENE (acute kidney injury) Patient Disposition: Still a Patient Condition: Improved
[2024-03-20 19:49] LABS: Basophils Percent Auto 1.2 % (0.2-1.2); Eosinophils Absolute Auto 0.1 K/mm3 (0-0.3); Eosinophils Percent Auto 5.6 % (0-4.4); Hemoglobin 8.4 g/dL (12.0-15.0); Immature Granulocyte Absolute 0.01 K/mm3 (0.00-0.031); Immature Granulocyte Percent A 0.4 % (0-0.5); Immature Platelet Fraction Pct 2.5 % (0.9-11.2); Lymphocytes Absolute Auto 0.39 K/mm3 (0.9-3.2); Lymphocytes Percent Auto 15.7 % (18.3-44.2); Mean Corpuscular HGB Conc 33.6 g/dl (32-36); Mean Corpuscular Hemoglobin 32.1 pg (26-34); Mean Corpuscular Volume 95.4 fl (80-100); Mean Platelet Volume 10.2 fl (7.4-10.4); Monocytes Absolute Auto 0.5 K/mm3 (0.1-0.6); Monocytes Percent Auto 18.1 % (2.6-8.5); Neutrophils Absolute Auto 1.5 K/mm3 (1.3-6.7); Platelet Count Result 45 k/mm3 (150-375); Red Blood Count 2.62 M/mm3 (4.2-5.4); Red Cell Distribution Width 18.6 % (11.5-14.5); White Blood Count 2.5 K/mm3 (4.5-10.0)
[2024-03-20 19:55] LABS: Alanine Aminotransferase 132 U/L (6-35); Albumin Level 3.3 g/dL (3.5-5.1); Alkaline Phosphatase 89 U/L (38-126); Anion Gap 7 mmol/L (4-12); Aspartate Amino Transferase 161 U/L (14-36); Blood Urea Nitrogen 21 mg/dL (7-17); Calcium 8.3 mg/dL (8.4-10.2); Carbon Dioxide 24 mmol/L (22-30); Chloride 104 mmol/L (98-107); Estimated CRCL calculation 40 ml/min; Estimated Glomerular Filt Rate 36; Glucose 168 mg/dL (65-110); Lipase 248 U/L (23-300); Sodium 135 mmol/L (137-145)
[2024-03-20 20:06] LABS: Troponin I < 0.012 ng/mL (0.000-0.034)
[2024-03-20 20:08] LABS: INR 3.3; Partial Thromboplastin Time 48.4 Seconds (22.3-36.8); Prothrombin Time 34.3 Seconds (11.1-14.7)
[2024-03-20 20:19] LABS: Burr Cells 1+; Hypochromasia 1+; Ovalocytes 1+; Platelet Estimate Decreased (Adequate); Poikilocytosis 1+; Schistocytes None Seen
[2024-03-20 21:07] LABS: Add Urine Microscopic? YES; Appearance Urine Clear (Clear); Bacteria Urine None Seen /hpf; Bilirubin Urine Negative (Negative); Blood Urine Negative (Negative); Color Urine Dark Yellow (Yellow); Glucose Urine UA Negative (Negative); Ketones Urine Negative (Negative); Leukocyte Esterase Ur Trace LEU/UL (Negative); Nitrate Urine Negative (Negative); Non Pathogenic Casts 0-2; Protein Urine Negative (Negative); RBC Urine 0-2 /hpf (0-2); Specific Grav Ur 1.007 (1.001-1.035); Squamous Epithelial Cell Urine Few /hpf (Few); WBC Urine 0-5 /hpf (0-3); pH Urine 5.5 (5.0-9.0)
[2024-03-20 21:40] VITALS: BP 130/55; PULSE 65; RESP 16; O2SAT 100
--- NOTE | 2024-03-21 | ECHO_ITS ---
Patient Info Name: Rosemary Romeo Age: 58 years : 1965 Gender: Female Ht: 62 in Wt: 208 lbs BSA: 2.08 m2 HR: 72 bpm BP: 95 / 54 mmHg Heart Rhythm: Sinus Rhythm Technical Quality: Good Exam Date: 03/21/2024 10:44 AM Exam Location: Echo Lab Patient Status: Inpatient Admit Date: 03/21/2024 Staff Ordering Physician: Kemal Shafer MD Wrapper Layer And Examiner Soft Work: Bev Cherry RDCS Attending Provider: Krystle Oropeza APRN Referring Physician: Soni BONILLA; Exam Type: CA echo doppler color flow Study Info Indications - Cardiomegaly - CHF Complete two-dimensional, color flow and Doppler transthoracic echocardiogram is performed. Summary 1. Complete two-dimensional, color flow and Doppler transthoracic echocardiogram is performed. 2. Left ventricular chamber dimension is mildly enlarged. 3. Left ventricular systolic function is normal, estimated at 55-60%. 4. There is no increased left ventricular wall thickness. 5. The left ventricular diastolic function is abnormal. 6. Left atrial chamber dimension is mildly enlarged. 7. There is mild aortic valve regurgitation. 8. There is mild mitral valve regurgitation. 9. There is mild to moderate tricuspid valve regurgitation. 10. Moderate pulmonary hypertension, estimated pulmonary arterial systolic pressure is 57 mmHg. 11. There is mild pulmonic regurgitation. 12. The prox ascending aorta size is mildly dilated. Left Ventricle Left ventricular chamber dimension is mildly enlarged. Left ventricular systolic function is normal, estimated at 55-60%. There is no increased left ventricular wall thickness. The left ventricular diastolic function is abnormal. Right Ventricle Right ventricular chamber dimension is normal. Right ventricular systolic function is normal. Left Atria Left atrial chamber dimension is mildly enlarged. Right Atria Right atrial chamber dimension is normal. Atrial Septum Intact interatrial septum visualized by color flow imaging. Aortic Valve The aortic valve is trileaflet. There is no aortic valve sclerosis. There is no aortic valve stenosis. There is mild aortic valve regurgitation. Pulmonic Valve The pulmonic valve is normal. There is no pulmonic valve stenosis. There is mild pulmonic regurgitation. Mitral Valve The mitral valve has normal leaflets. There is no mitral valve stenosis. There is mild mitral valve regurgitation. Tricuspid Valve The tricuspid valve leaflets are normal. There is no significant tricuspid valve stenosis. There is mild to moderate tricuspid valve regurgitation. Moderate pulmonary hypertension, estimated pulmonary arterial systolic pressure is 57 mmHg. Pericardium/Pleural The pericardium appears normal. There is trivial pericardial effusion. Inferior Vena Cava Normal inferior vena cava with >50% collapse upon inspiration consistent with normal right atrial pressure, 8 mmHg. Aorta The prox ascending aorta size is mildly dilated. Left Ventricular Outflow Tract Name Value Normal LVOT 2D LVOT Diameter 2.3 cm LVOT Doppler LVOT Peak Gradient 5 mmHg Pulmonic Valve Name Value Normal PV Doppler PV Peak Gradient 7 mmHg Mitral Valve Name Value Normal MV Doppler MV Decel [place] 403 cm/s2 MV PHT 72 ms MV Area (PHT) 3.1 cm2 4.0-5.0 MV Diastolic Function MV E Peak Velocity 100 cm/s MV A Peak Velocity 87 cm/s MV E/A 1.2 MV Decel Time 248 ms MV Annular TDI MV E/e' (Septal) 8.3 <=8.0 MV E/e' (Lateral) 9.4 <=8.0 MV E/e' (Average) 8.8 Tricuspid Valve Name Value Normal TV Regurgitation Doppler TR Peak Velocity 351 cm/s TR Peak Gradient 49 mmHg Estimated PAP/RSVP RA Pressure 8 mmHg <=5 PA Systolic Pressure 57 mmHg <36 RV Systolic Pressure 57 mmHg <36 Aortic Valve Name Value Normal AV Doppler AV Peak Velocity 172 cm/s AV Peak Gradient 12 mmHg AV Area (Cont Eq Alfa) 2.7 cm2 AV Regurgitation 2D LVOT Area 4.1 cm2 Ventricles Name Value Normal LV Dimensions 2D/MM IVS Diastolic Thickness (2D) 0.7 cm 0.6-1.0 LVID Diastole (2D) 5.6 cm 3.8-5.2 LVIW Diastolic Thickness (2D) 0.8 cm 0.6-0.9 LVID Systole (2D) 4.2 cm 2.2-3.5 LVOT Diameter 2.3 cm LV Mass (2D Cubed) 160.18 g 67.00-162.00 LV Mass Index (2D Cubed) 77 g/m2 43-95 Relative Wall Thickness (2D) 0.29 LV Fractional Shortening/Ejection Fraction 2D/MM LV Fractional Shortening (2D) 26 % 27-45 LV EF (2D Teicholz) 50 % 54-74 LV Diastolic Volume (4C MOD) 179 ml LV EF (4C MOD) 57 % LV Diastolic Volume (2C MOD) 134 ml LV EF (2C MOD) 58 % LV Diastolic Volume (BP MOD) 157 ml 46-106 LV Diastolic Volume Index (BP MOD) 76 ml/m2 29-61 LV Systolic Volume (BP MOD) 67 ml 14-42 LV Systolic Volume Index (BP MOD) 32 ml/m2 8-24 LV EF (BP MOD) 58 % 54-74 LV Diastolic Length (4C) 8.5 cm LV Systolic Length (4C) 6.8 cm LV Stroke Volume (4C MOD) 103 ml Atria Name Value Normal LA Dimensions LA Volume (4C A-L) 125 ml LA Volume (BP A-L) 116 ml RA Dimensions RA Area (4C) 26.7 cm2 <=18.0 Report Signatures
[2024-03-21 00:34] VITALS: BP 106/67; PULSE 70; RESP 18; O2SAT 100
--- NOTE | 2024-03-21 00:54 | P.HP_ITS ---
H&P: HPI History of Present Illness Date/Time: 03/21/24 00:54 Chief Complaint: 1. Abnormal labs. Worsening hepatic function Narrative: Rosemary Romeo is a 58 yo F with mHx significant for HepC infection s/p IFN Rx, d epression, obesity, IDDM, Hypothyroidism, GERd, Insomnia. After an inpatient evaluation and management for anasarca at [facility] during which she was placed on Albumin boluses and diuresis; with an improved symptoms profile, she was discharged home with plans to f/u with her PCP for routine labwork. She was called back by her PCP this evening and advised to pursue an ED visit due to worsening liver function tests; she however denies symptoms of pains, nausea, vomiting dizziness, hematuria or hematochezia. She attests to abdominal fullness with dyspnea due to diaphragmatic splinting. Work-up findings CTAP: 1. Liver cirrhosis. 2. Splenomegaly 3. Gross ascites. 4. Portal hypertension CXR: Cardiomegaly with congestive kendra. Cardiac decompensation is not excluded. No other definite abnormality. WBC 2.5 Hb 8.4 PLT 45 INR 3.3 Na 135 K 4 Cl 104 HCO3 24 AG 7 BUN 21 Cr. 1.5 GFR 36 AST 132 ALT 132 ALP 89 T. Bili 12 Lipase 248 UA: Unremarkable She will be admitted, evaluated and managed for liver failure Review of Systems Constitutional: Constitutional: Reports body ache(s), Reports chills, Reports fatigue and Reports lethargy Eyes: Eyes: Reports no additional eye complaints ENT: Reports Normal hearing present, Denies dysphagia, Denies epistaxis and Denies nasal congestion Cardiovascular: Cardiovascular: Denies pedal edema Respiratory: Respiratory: Reports no additional respiratory complaints Gastrointestinal: Gastrointestinal: Reports no additional gastrointestinal complaints Musculoskeletal: Musculoskeletal: Reports no additional musculoskeletal complaints Neurologic: Denies abnormal gait, Denies confusion and Denies headache(s) Psychiatric: Psychiatric: Reports no additional psychiatric complaints [facility] Past Medical History Medical History (Updated 03/21/24 @ 04:25 by Damian Vazquez MD) Acute renal failure Diabetes mellitus HTN (hypertension) Hypothyroidism (acquired) Liver failure Surgical History Surgical History (Updated 05/12/22 @ 07:48 by Elroy HagerMD) AVM (arteriovenous malformation) 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 Family History Family History (Updated 12/04/24 @ 01:32 by Natasha Virgen RN) Father Acute myocardial infarction Diabetes mellitus Grandparent Acute myocardial infarction Mother Chronic obstructive pulmonary disease Social History Social History Smoking status: Never smoker Second hand tobacco smoke exposure: Yes Alcohol intake: never Substance use: never Do You Feel Safe in your Home?: Yes Lack of Transportation: No Lack of Food: Never True Current Housing: I Have Housing Concerned About Future Housing: No Difficulty Paying Gas/Electric Bills: No Difficulty Paying for Meds: No Currently Unemployed: No Education: Master's Degree or Higher Difficulty w/ Childcare or Family Care: No Gender identity (if verbalized by the patient): Female Spiritual care concerns: No Meds Home Medications and Allergies Home Medications Medication Instructions Recorded Confirmed Type citalopram 20 mg tablet 40 mg PO DAILY 09/22/19 03/21/24 History levothyroxine 112 mcg tablet 100 mcg PO DAILY 09/22/19 03/21/24 History lisinopril 20 1 tablet PO DAILY 09/22/19 03/21/24 History mg-hydrochlorothiazide 25 mg tablet carvedilol 6.25 mg tablet 6.25 mg PO DAILY 03/21/24 03/21/24 History insulin degludec 100 unit/mL (3 10 unit subcut DAILY 03/21/24 03/21/24 History mL) subcutaneous pen (Tresiba FlexTouch U-100 insulin) midodrine 5 mg tablet 1 mg PO BID PRN Hypotension 03/21/24 03/21/24 History ondansetron 4 mg disintegrating 4 mg PO Q6H PRN nausea/vomiting 03/21/24 03/21/24 History tablet pantoprazole 40 mg tablet,delayed 40 mg PO DAILY 03/21/24 03/21/24 History release pen needle, diabetic 32 gauge x 03/21/24 03/21/24 History 5/32 (BD Darya 2nd Gen Pen Needle) spironolactone 25 mg tablet 25 mg PO QID PRN swelling 03/21/24 03/21/24 History trazodone 50 mg tablet 50 mg PO HS 03/21/24 03/21/24 History Allergies Allergy/AdvReac Type Severity Reaction Status Date / Time succinylcholine Allergy Unknown Verified 03/21/24 00:10 Sulfa (Sulfonamide AdvReac Unknown Verified 03/21/24 00:10 Antibiotics) Vital Signs Vital Signs - 24 hr 03/20/24 17:42 03/20/24 21:40 03/21/24 00:34 Temperature 97.5 F L Pulse Rate 66 65 70 Respiratory Rate 18 16 18 Blood Pressure 120/47 L 130/55 L 106/67 Pulse Oximetry 100 100 100 Oxygen Delivery Room Air Exam Const: General: comfortable and no acute distress HENMT: Mouth: Yes moist mucous membranes Eyes: General: appearance normal, both eyes and all related structures Sclera: sclerae normal (icterus) Pupils: Equal, round and reactive pupils present EOM: EOMs intact bilaterally Resp: Effort & Inspection: normal respiratory effort Cardio: Rate: regular rate Rhythm: regular rhythm GI: Inspection: distended Auscultation: normal bowel sounds Skin: General skin exam: normal color (jaundiced) Neuro: General: gait normal Motor exam (neuro): 5/5 motor strength present throughout, Normal motor muscle tone present throughout and Abnormal motor strength present Extrem: General: normal to inspection Psych: Mental Status: mental status grossly normal Affect: Anxious affect present H&P: Results Labs Labs: Short CBC 03/20/24 Range/Units 19:39 WBC 2.5 L (4.5-10.0) K/mm3 Hgb 8.4 L (12.0-15.0) g/dL Hct 25.0 L (37.0-47.0) % Plt Count 45 L (150-375) k/mm3 BMP 03/20/24 19:39 Sodium 135 L Potassium 4.0 Chloride 104 Carbon Dioxide 24 BUN 21 H Creatinine 1.50 H Glucose 168 H Calcium 8.3 L Cardiac Enzymes 03/20/24 Range/Units 19:39 Troponin I < 0.012 (0.000-0.034) ng/mL Liver Function 03/20/24 Range/Units 19:39 Total Bilirubin 12.0 H (0.2-1.3) mg/dL AST 161 H (14-36) U/L ALT 132 H (6-35) U/L Alkaline Phosphatase 89 (38-126) U/L Albumin 3.3 L (3.5-5.1) g/dL Urine 03/20/24 Range/Units 20:57 Urine Color Dark yellow (Yellow) Urine Appearance Clear (Clear) Urine pH 5.5 (5.0-9.0) Ur Specific Bur[place] 1.007 (1.001-1.035) Urine Protein Negative (Negative) mg/dL Urine Glucose (UA) Negative (Negative) mg/dL Assessment and Plan Assessment and plan (1) Acute renal failure: Qualifiers: Acute renal failure type: unspecified Qualified Code(s): N17.9 - Acute kidney failure, unspecified Code(s): N17.9 - Acute kidney failure, unspecified Status: Acute (2) Elevated liver enzymes: Code(s): R74.8 - Abnormal levels of other serum enzymes Status: Acute (3) Liver cirrhosis: Code(s): K74.60 - Unspecified cirrhosis of liver Status: Acute (4) Hepatorenal syndrome with acute kidney injury: Code(s): K76.7 - Hepatorenal syndrome; N17.9 - Acute kidney failure, unspecified Status: Acute Plan Acute and principal conditions 1. Pancytopenia 2. Liver failure 3. Supra-therapeutic INR 4. Acute renal insufficiency. 5. Hyponatremia. maybe 2/2 SIADH, diuretic Rx GI consulted; will benefit from Nephrology input Monitor CBC IVFs; gentle hydration monitor liver function; Avoid hepatotoxins Chronic and stable conditions 1. Recurrent depression w/Anxiety. 2. Liver cirrhosis w/Varices 3. Hepatitis C infection; s/p Interferon infection. 4. Hypothyroidism. 5. GERD. on Pantoprazole 6. Insomnia. on Trazodone 7. IDDM. On Basal+correctional insulin regimen Code status. Full Nutrition. Carb-controlled VTE prophylaxis. SCDs; holding VTE prophylaxis due to thrombocytopeni Hospitalist [facility] Advance Care Plan I have confirmed that the patient's Advanced Care Plan is present, code status is documented, or surrogate decision maker is listed in patient medical record.: Yes Medication Reconciliation I have utilized all available resources to obtain, update and review the patients current medications (includes all prescriptions, OTC, herbals, cannabis, and nutritional supplements).: Yes
--- NOTE | 2024-03-21 01:29 | ADMGEN ---
This patient, Rosemary Romeo, was admitted to [facility] Surg Room 311-01. Patient/family oriented to hospital policies and general routines including ID bracelet, bed and alarms, visiting hours, pain management, procedures, bathroom and other care routines, personal items, smoking policy, room service/diet, and visiting hours. Information on how to activate the Rapid Response Team has been discussed. Patient/Family are encouraged to report perceived risks to care and to ask questions if they do not understand what they are told or what they should do.
[2024-03-21 01:39] VITALS: BMI 37.7
--- NOTE | 2024-03-21 01:50 | PC.NURSE ---
Admission report PEREZ Stovall.
[2024-03-21] MEDS: LEVOTHYROXINE SODIUM 100 MCG TABLET PO (05:39)
[2024-03-21 06:07] VITALS: BP 95/54; PULSE 72; RESP 20; TEMP 37.3; O2SAT 97
[2024-03-21 07:05] LABS: Basophils Percent Auto 0.6 % (0.2-1.2); Eosinophils Absolute Auto 0.1 K/mm3 (0-0.3); Hematocrit 23.1 % (37.0-47.0); Hemoglobin 7.8 g/dL (12.0-15.0); Lymphocytes Absolute Auto 0.37 K/mm3 (0.9-3.2); Lymphocytes Percent Auto 22.6 % (18.3-44.2); Mean Corpuscular HGB Conc 33.8 g/dl (32-36); Mean Corpuscular Hemoglobin 32.5 pg (26-34); Mean Corpuscular Volume 96.3 fl (80-100); Monocytes Absolute Auto 0.3 K/mm3 (0.1-0.6); Monocytes Percent Auto 18.3 % (2.6-8.5); Neutrophils Absolute Auto 0.9 K/mm3 (1.3-6.7); Neutrophils Percent Auto 55.5 % (45.5-73.1); Platelet Count Result 48 k/mm3 (150-375); Red Cell Distribution Width 18.6 % (11.5-14.5)
[2024-03-21 07:16] LABS: Magnesium 1.9 mg/dL (1.6-2.3)
[2024-03-21 07:19] LABS: Alanine Aminotransferase 114 U/L (6-35); Albumin Level 2.8 g/dL (3.5-5.1); Alkaline Phosphatase 121 U/L (38-126); Anion Gap 4 mmol/L (4-12); Aspartate Amino Transferase 130 U/L (14-36); Bilirubin,Total 9.8 mg/dL (0.2-1.3); Blood Urea Nitrogen 20 mg/dL (7-17); Carbon Dioxide 23 mmol/L (22-30); Chloride 108 mmol/L (98-107); Estimated CRCL calculation 42 ml/min; Estimated Glomerular Filt Rate 39; Glucose 137 mg/dL (65-110); Potassium 4.1 mmol/L (3.4-5.0); Sodium 135 mmol/L (137-145)
[2024-03-21 07:59] LABS: Glucose Point of Care 167 mg/dl (65-105)
[2024-03-21 08:11] LABS: Anisocytosis 1+; Platelet Estimate Decreased (Adequate); White Blood Count 1.6 K/mm3 (4.5-10.0)
[2024-03-21 08:12] LABS: Burr Cells 1+; Macrocytosis 1+ (NORMAL); Ovalocytes 1+; Schistocytes None Seen
[2024-03-21 08:53] VITALS: PULSE 72
[2024-03-21] MEDS: CITALOPRAM HYDROBROMIDE 20 MG TABLET 40 MG PO (08:53)
[2024-03-21] MEDS: carvediloL 6.25 MG TABLET PO (08:53)
[2024-03-21] MEDS: PANTOPRAZOLE 40 MG TABLET PO (08:53)
[2024-03-21] MEDS: ALBUMIN HUMAN 25% 25 GM/100 ML 200 ML IVPB ×2 (08:54→17:19)
--- NOTE | 2024-03-21 11:22 | P.PNIM_ITS ---
Progress Note: A&P Assessment and Plan (1) Acute renal failure: Qualifiers: Acute renal failure type: unspecified Qualified Code(s): N17.9 - Acute kidney failure, unspecified Code(s): N17.9 - Acute kidney failure, unspecified Status: Acute Assessment and Plan: * initial creatinine 1.50 now down to 1.40 today * baseline creatinine near 1.0 * EGFR 42 * continue to trend * UA shown trace leukocytes otherwise normal * stop lisinopril, hydrochlorothiazide, spironolactone per GI recommendation (2) Liver cirrhosis: Code(s): K74.60 - Unspecified cirrhosis of liver Status: Acute Assessment and Plan: * history of KENNEY and Hepatitis C in the past treated with interferon for 9 months with full recovery * Initial-Total bili 12.0, AST 161, ALT 132, Alk phos 89 * today total bili down to 9.8, AST 130, ALT 114 * Meld score 40, will likely need liver transplant per Dr. Shafer * Paracentesis today you will 1900 mL of serous fluid. Cytology pending * MRCP plan for tomorrow, patient has AVM-- paperwork faxed over from [place] * 75 g albumin for tomorrow ordered per GI recommendation * dietitian consult for 2 g sodium diet, 1 g protein per kg, diabetic diet * GI to reach out to [facility] liver Transplant Team for referral (3) Hepatorenal syndrome with acute kidney injury: Code(s): K76.7 - Hepatorenal syndrome; N17.9 - Acute kidney failure, unspecified Status: Acute Assessment and Plan: * cardiology consulted and said no evidence of decompensated heart failure, portal hypertension secondary to liver disease. * echo showing normal LV systolic function with estimated EF of 55-60%, diastolic dysfunction, moderate pulmonary edema (4) Hypothyroidism (acquired): Code(s): E03.9 - Hypothyroidism, unspecified Status: Acute Assessment and Plan: * continue Synthroid * will get another TSH today (5) HTN (hypertension): Code(s): I10 - Essential (primary) hypertension Status: Acute Assessment and Plan: * slightly hypotensive with blood pressures ranging 95/54 to 106/67 * currently on Coreg * lisinopril/ hydrochlorothiazide and spironolactone stopped due to RENE and advanced liver failure. It is recommended not to restart these medications per GI team (6) Diabetes mellitus: Code(s): E11.9 - Type 2 diabetes mellitus without complications Status: Acute Assessment and Plan: * Blood sugars ranging 137-252 * will obtain Hgb A1C * Accu checks AC/HS * high-dose SSI ordered * hypoglycemic protocol in place * Diabetic diet ordered * hold Tresiba (7) Pancytopenia: Code(s): D61.818 - Other pancytopenia Status: Acute Assessment and Plan: * white blood cell count 1.6, RBC 2.40, platelet count 48 today * likely secondary to liver failure * continue to trend * consider hematology/oncology consult Time Spent With Patient Time with patient: Greater than 35 minutes Subjective Date/time seen: 03/21/24 11:22 Interval history: Interval history: This is a 58-year-old female who presented to the hospital on 03/21/2024 with worsening hepatic function and abnormal labs. Workup in the hospital included a chest x-ray which showed cardiomegaly with congestive kendra. CT of the abdomen and pelvis shown liver cirrhosis, splenomegaly, gross ascites, portal hypertension. Initial labs showed a white blood cell count of 2.5, RBC 2.62, hemoglobin 8.4, platelet count 45, eosinophils 5.6, INR 3.3, sodium 135, creatinine 1.50, EGFR 36, total bili 12.0, AST 161, ALT 132, alk-phos was 89, troponin negative, lipase 248. UA was obtained and showed trace leukocytes otherwise negative. EKG showed sinus rhythm with a rate of 66, QTC 496. Patient was given midodrine and albumin. GI and Cardiology were consulted. Subjective: Patient denies Any fever, chills, nausea, vomiting, diarrhea, chest pain, shortness a breath, abdominal pain. Patient states that she feels better after having the paracentesis today. She states that her breathing is more comfortable. Labs and imaging reviewed. Review of Systems Review of Systems: All systems reviewed & are unremarkable except as noted in HPI and below Constitutional: Constitutional: Reports as per HPI and Reports no additional constitutional complaints Eyes: Eyes: Reports as per HPI and Reports no additional eye complaints ENT: Reports system reviewed and no additional complaints, except as documented and Reports as per HPI Cardiovascular: Cardiovascular: Reports as per HPI and Reports no additional cardiovascular complaints Respiratory: Respiratory: Reports as per HPI and Reports no additional respiratory complaints Gastrointestinal: Gastrointestinal: Reports as per HPI and Reports no additional gastrointestinal complaints Genitourinary: Genitourinary: Reports no additional female genitourinary complaints and Reports as per HPI Musculoskeletal: Musculoskeletal: Reports no additional musculoskeletal complaints and Reports as per HPI Integumentary/Breasts: Skin/Breast: Reports system reviewed and no additional complaints, except as docu and Reports as per HPI Neurologic: Reports system reviewed and no additional complaints, except as documented and Reports as per HPI Psychiatric: Psychiatric: Reports no additional psychiatric complaints and Reports as per HPI Exam Narrative: General: In no acute distress, well nourished Head: atraumatic, no encephalopathy Eyes: PERRLA, sclera jaundice ENT: moist mucous membranes, nasal passages clear Neck: supple, no JVD, no adenopathy, trachea midline Cardiac: Normal S1 and S2. No murmur, gallops or friction rubs, peripheral pulses intact. Respiratory: Lungs clear to auscultation, no adventitious lung sounds , currently on room air Gastrointestinal: soft, non-distended, non-tender, normoactive bowel sounds. : voiding without difficulty. Extremities: moves all extremities well, no edema, good ROM, strength 5/5 Skin: jaundice Neuro: Alert and oriented x4, cranial nerves intact, no neuro deficits. Psych: normal mood, normal affect, interactive Objective Data Vital Signs Vital Signs: Vital Signs - 24 hr 03/20/24 17:42 03/20/24 21:40 03/21/24 00:34 Temperature 97.5 F L Pulse Rate 66 65 70 Respiratory Rate 18 16 18 Blood Pressure 120/47 L 130/55 L 106/67 Pulse Oximetry 100 100 100 Oxygen Delivery Room Air 03/21/24 06:07 03/21/24 08:53 03/21/24 08:50 Temperature 99.1 F Pulse Rate 72 72 Respiratory Rate 20 Blood Pressure 95/54 L Pulse Oximetry 97 Oxygen Delivery Room Air Intake/Output Intake/Output: Intake & Output 03/18/24 03/19/24 03/20/24 03/21/24 23:59 23:59 23:59 23:59 Intake Total 0 Balance 0 Meds/Results Medications: Active Medications Generic Name Dose Route Start Last Admin Trade Name Freq PRN Reason Stop Dose Admin Carvedilol 6.25 mg 03/21/24 09:00 03/21/24 08:53 Carvedilol 6.25 Mg Tablet PO 6.25 mg DAILY [facility] Administration Citalopram Hydrobromide 40 mg 03/21/24 09:00 03/21/24 08:53 Citalopram Hydrobromide 20 Mg Tablet PO 40 mg DAILY [facility] Administration Albumin Human 200 mls @ 60 mls/hr 03/21/24 18:00 Albutein IVPB 03/21/24 21:19 ONCE ONE Levothyroxine Sodium 100 mcg 03/21/24 06:30 03/21/24 05:39 Levothyroxine Sodium 100 Mcg Tablet PO 100 mcg DAILY@0630 [facility] Administration Midodrine 5 mg 03/21/24 04:28 Midodrine Hcl 2.5 Mg Tablet PO BID PRN Hypotension Miscellaneous Information 0 each 03/21/24 00:01 Midodrine-Please Give Specific Parameter For Hypotension XX 04/20/24 00:00 CLARIFY [facility] Pantoprazole Sodium 40 mg 03/21/24 09:00 03/21/24 08:53 Pantoprazole 40 Mg Tablet PO 40 mg DAILY [facility] Administration Perflutren Lipid Microsphere 0 ml 03/21/24 07:26 Perflutren Lipid Microspheres 1.5 Ml Vial Diluted To 10 Ml Total Volume IV PUSH 03/24/24 07:26 ONCE PRN adequate visualization Protocol Trazodone HCl 50 mg 03/21/24 21:00 Trazodone Hcl 50 Mg Tablet PO [facility] Radiology Results: ITS Impressions Chest X-Ray 03/20/24 20:42 IMPRESSION: Cardiomegaly with congestive kendra. Cardiac decompensation is not excluded. No other definite abnormality. Abdomen/Pelvis CT 03/20/24 23:07 IMPRESSION: 1. Liver cirrhosis. 2. Splenomegaly 3. Gross ascites. 4. Portal hypertension Labs Labs: Laboratory Results - last 24 hr 03/20/24 03/20/24 03/21/24 19:39 20:57 06:26 WBC 2.5 L 1.6 L* RBC 2.62 L 2.40 L Hgb 8.4 L 7.8 L Hct 25.0 L 23.1 L MCV 95.4 96.3 MCH 32.1 32.5 MCHC 33.6 33.8 RDW 18.6 H 18.6 H Plt Count 45 L 48 L MPV 10.2 11.0 H Immature Gran % (Auto) 0.4 0.0 Neut % (Auto) 59.0 55.5 Lymph % (Auto) 15.7 L 22.6 Sutter % (Auto) 18.1 H 18.3 H Eos % (Auto) 5.6 H 3.0 Baso % (Auto) 1.2 0.6 Lymph # (Auto) 0.39 L 0.37 L Sutter # (Auto) 0.5 0.3 Eos # (Auto) 0.1 0.1 Baso # (Auto) 0.0 0.0 Abs Immat Gran (auto) 0.01 0.00 Absolute Neuts (auto) 1.5 0.9 L Absolute Nucleated RBC 0.000 0.000 Nucleated RBC % 0.0 0.0 Platelet Estimate Decreased Decreased % Immature Plt Fraction 2.5 3.0 Hypochromasia 1+ Poikilocytosis 1+ Anisocytosis 1+ Macrocytosis 1+ Ovalocytes 1+ 1+ Karolyn Cells 1+ 1+ Schistocytes None seen None seen PT 34.3 H INR 3.3 APTT 48.4 H Sodium 135 L 135 L Potassium 4.0 4.1 Chloride 104 108 H Carbon Dioxide 24 23 Anion Gap 7 4 BUN 21 H 20 H Creatinine 1.50 H 1.40 H Estim Creat Clear Calc 40 42 Estimated GFR 36 L 39 L Glucose 168 H 137 H POC Capillary Glucose Calcium 8.3 L 8.0 L Magnesium 1.9 Total Bilirubin 12.0 H 9.8 H AST 161 H 130 H ALT 132 H 114 H Alkaline Phosphatase 89 121 Troponin I < 0.012 Total Protein 6.0 L 5.0 L Albumin 3.3 L 2.8 L Lipase 248 Urine Color Dark yellow Urine Appearance Clear Urine pH 5.5 Ur Specific [place] 1.007 Urine Protein Negative Urine Glucose (UA) Negative Urine Ketones Negative Ur Blood (Man) Negative Urine Nitrate Negative Urine Bilirubin Negative Urine Urobilinogen 1.0 Leukocyte Esterase Rfl Trace H Urine RBC 0-2 Urine WBC 0-5 Ur Squamous Epith Cells Few Urine Bacteria None seen Urine Casts 0-2 03/21/24 07:54 WBC RBC Hgb Hct MCV MCH MCHC RDW Plt Count MPV Immature Gran % (Auto) Neut % (Auto) Lymph % (Auto) Sutter % (Auto) Eos % (Auto) Baso % (Auto) Lymph # (Auto) Sutter # (Auto) Eos # (Auto) Baso # (Auto) Abs Immat Gran (auto) Absolute Neuts (auto) Absolute Nucleated RBC Nucleated RBC % Platelet Estimate % Immature Plt Fraction Hypochromasia Poikilocytosis Anisocytosis Macrocytosis Ovalocytes Karolyn Cells Schistocytes PT INR APTT Sodium Potassium Chloride Carbon Dioxide Anion Gap BUN Creatinine Estim Creat Clear Calc Estimated GFR Glucose POC Capillary Glucose 167 H Calcium Magnesium Total Bilirubin AST ALT Alkaline Phosphatase Troponin I Total Protein Albumin Lipase Urine Color Urine Appearance Urine pH Ur Specific [place] Urine Protein Urine Glucose (UA) Urine Ketones Ur Blood (Man) Urine Nitrate Urine Bilirubin Urine Urobilinogen Leukocyte Esterase Rfl Urine RBC Urine WBC Ur Squamous Epith Cells Urine Bacteria Urine Casts Quality VTE Prophylaxis VTE prophylaxis: mechanical ordered
--- NOTE | 2024-03-21 11:54 | WPDGICN ---
Assessment and Plan Assessment and plan (1) Liver cirrhosis: Code(s): K74.60 - Unspecified cirrhosis of liver Status: Acute Assessment and Plan: The patient presents with severely decompensated cirrhosis, characterized by new-onset ascites, severe jaundice, and renal failure. To determine the underlying cause of renal failure, we will initially rule out prerenal factors, particularly diuretic use, by administering 48 hours of intravenous albumin. Additionally, a diagnostic paracentesis will be performed to exclude spontaneous bacterial peritonitis as a potential cause of decompensation. The patient's elevated MELD score of 40 indicates a grave prognosis. Given the disproportionately high bilirubin level, an MRCP without contrast will be ordered to investigate potential intra- or extrahepatic biliary strictures. Finally, a cardiology consultation is warranted due to the x-ray findings of cardiomegaly and congestion. Will monitor kidney and liver function closely. (2) Elevated liver enzymes: Code(s): R74.8 - Abnormal levels of other serum enzymes Status: Acute (3) Acute renal failure: Qualifiers: Acute renal failure type: unspecified Qualified Code(s): N17.9 - Acute kidney failure, unspecified Code(s): N17.9 - Acute kidney failure, unspecified Status: Acute GI Consult Note Consult date/time: 03/21/24 11:54 HPI: Rosemary Romeo is a 58 year old female With a history of hepatitis C treated with interferon and cured from the virus more than 12 years ago. However, she has liver cirrhosis that has been stable until approximately 3 weeks ago when she noticed the onset of ascites. she was hospitalized at [facility] from March 08-->, were she did not get paracentesis, and was given intravenous albumin for approximately 4 days. He was previously taking spironolactone and combination of losartan and hydrochlorothiazide, Which were discontinued. Demetris was admitted last night for worsening ascites, general malaise and markedly abnormal liver function tests. There is no history of encephalopathy, gastrointestinal bleeding or fever. Review of Systems Review of Systems: All systems reviewed & are unremarkable except as noted in HPI and below PMFSH Past Medical History Medical History (Updated 03/21/24 @ 04:25 by Damian Vazquez MD) Acute renal failure Diabetes mellitus HTN (hypertension) Hypothyroidism (acquired) Liver failure Surgical History Surgical History (Updated 05/12/22 @ 07:48 by Elroy SnowdenMD) AVM (arteriovenous malformation) 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 Family History Family History (Updated 03/21/24 @ 01:32 by Natasha Virgen RN) Father Acute myocardial infarction Diabetes mellitus Grandparent Acute myocardial infarction Mother Chronic obstructive pulmonary disease Social History Social History Smoking status: Never smoker Second hand tobacco smoke exposure: Yes Alcohol intake: never Substance use: never Do You Feel Safe in your Home?: Yes Lack of Transportation: No Lack of Food: Never True Current Housing: I Have Housing Concerned About Future Housing: No Difficulty Paying Gas/Electric Bills: No Difficulty Paying for Meds: No Currently Unemployed: No Education: Master's Degree or Higher Difficulty w/ Childcare or Family Care: No Gender identity (if verbalized by the patient): Female Spiritual care concerns: No Meds Home Medications and Allergies Home Medications Medication Instructions Recorded Confirmed Type citalopram 20 mg tablet 40 mg PO DAILY 09/22/19 03/21/24 History levothyroxine 112 mcg tablet 100 mcg PO DAILY 09/22/19 03/21/24 History lisinopril 20 1 tablet PO DAILY 09/22/19 03/21/24 History mg-hydrochlorothiazide 25 mg tablet carvedilol 6.25 mg tablet 6.25 mg PO DAILY 03/21/24 03/21/24 History insulin degludec 100 unit/mL (3 10 unit subcut DAILY 03/21/24 03/21/24 History mL) subcutaneous pen (Tresiba FlexTouch U-100 insulin) midodrine 5 mg tablet 1 mg PO BID PRN Hypotension 03/21/24 03/21/24 History ondansetron 4 mg disintegrating 4 mg PO Q6H PRN nausea/vomiting 03/21/24 03/21/24 History tablet pantoprazole 40 mg tablet,delayed 40 mg PO DAILY 03/21/24 03/21/24 History release pen needle, diabetic 32 gauge x 03/21/24 03/21/24 History (BD Darya 2nd Gen Pen Needle) spironolactone 25 mg tablet 25 mg PO QID PRN swelling 03/21/24 03/21/24 History trazodone 50 mg tablet 50 mg PO HS 03/21/24 03/21/24 History Allergies Allergy/AdvReac Type Severity Reaction Status Date / Time succinylcholine Allergy Unknown Verified 03/21/24 00:10 Sulfa (Sulfonamide AdvReac Unknown Verified 03/21/24 00:10 Antibiotics) Vital Signs Vital Signs - 24 hr 03/20/24 17:42 03/20/24 21:40 03/21/24 00:34 Temperature 97.5 F L Pulse Rate 66 65 70 Respiratory Rate 18 16 18 Blood Pressure 120/47 L 130/55 L 106/67 Pulse Oximetry 100 100 100 Oxygen Delivery Room Air 03/21/24 06:07 03/21/24 08:53 03/21/24 08:50 Temperature 99.1 F Pulse Rate 72 72 Respiratory Rate 20 Blood Pressure 95/54 L Pulse Oximetry 97 Oxygen Delivery Room Air Exam Narrative: Alert and oriented x3. Markedly jaundiced, cooperative, not acutely distressed. Const: General: comfortable Resp: Effort & Inspection: normal respiratory effort Auscultation: clear to auscultation bilaterally Cardio: Rate: regular rate Rhythm: regular rhythm GI: Inspection: distended GI Palp: Yes Firmness to palpation present (GI) and No Guarding due to palpation present (GI) Auscultation: normal bowel sounds Other: firm but not tense. Shifting dullness Extrem: General: edema and pedal edema Other: 3+ Psych: Mental Status: mental status grossly normal Results Labs 03/21/24 06:26 03/21/24 06:26 Labs: Short CBC 03/20/24 03/21/24 Range/Units 19:39 06:26 WBC 2.5 L 1.6 L* (4.5-10.0) K/mm3 Hgb 8.4 L 7.8 L (12.0-15.0) g/dL Hct 25.0 L 23.1 L (37.0-47.0) % Plt Count 45 L 48 L (150-375) k/mm3 BMP 03/20/24 03/21/24 19:39 06:26 Sodium 135 L 135 L Potassium 4.0 4.1 Chloride 104 108 H Carbon Dioxide 24 23 BUN 21 H 20 H Creatinine 1.50 H 1.40 H Glucose 168 H 137 H Calcium 8.3 L 8.0 L Cardiac Enzymes 03/20/24 Range/Units 19:39 Troponin I < 0.012 (0.000-0.034) ng/mL Liver Function 03/20/24 03/21/24 Range/Units 19:39 06:26 Total Bilirubin 12.0 H 9.8 H (0.2-1.3) mg/dL AST 161 H 130 H (14-36) U/L ALT 132 H 114 H (6-35) U/L Alkaline Phosphatase 89 121 (38-126) U/L Albumin 3.3 L 2.8 L (3.5-5.1) g/dL Urine 03/20/24 Range/Units 20:57 Urine Color Dark yellow (Yellow) Urine Appearance Clear (Clear) Urine pH 5.5 (5.0-9.0) Ur Specific [place] 1.007 (1.001-1.035) Urine Protein Negative (Negative) mg/dL Urine Glucose (UA) Negative (Negative) mg/dL
[2024-03-21 13:24] LABS: Appearance Peritoneal Fluid Clear (Clear); Color Peritoneal Fluid Yellow (Colorless); Nucleated Cells Peritoneal Flu 3 /uL (0-500); RBC Peritoneal Fluid < 2000 /uL (0-10000); Source Peritoneal Fluid Peritoneal Fluid
[2024-03-21 13:25] LABS: Lymphocytes Peritoneal Fluid 81 %; Macrophages Peritoneal Fluid 13 %; Mesothelial Cells Peritoneal Fluid 2 %; Neutrophils Peritoneal Fluid 4 % (0-25)
--- NOTE | 2024-03-21 13:34 | P.CONCA_ITS ---
Assessment and Plan Assessment and plan (1) Hepatorenal syndrome with acute kidney injury: Code(s): K76.7 - Hepatorenal syndrome; N17.9 - Acute kidney failure, unspecified Status: Acute Assessment and Plan: GI involved. Status post paracentesis. Breathing much better. recommend transferring her to her primary hand sample maker at [place] (2) Liver cirrhosis: Code(s): K74.60 - Unspecified cirrhosis of liver Status: Acute Assessment and Plan: Followed at [place] (3) Volume overload: Code(s): E87.70 - Fluid overload, unspecified Status: Acute Assessment and Plan: No evidence of decompensated heart failure. She has portal hypertension from underlying liver disease but a doubt there is any left heart involvement. Echo pending. If diuresis is performed, would likely need albumin to achieve any meaningful net negative balance History of Present Illness History of Present Illness Consult date/time: 03/21/24 13:34 Requesting physician: Kemal Shafer MD Consult reason: congestive heart failure Reason For Visit: Acute decompensated liver failure Narrative: Reason for consultation: Volume overload, rule out CHF, liver failure Date of service 03/21/2024 Requesting provider: Dr. Shafer History: Rosemary Romeo is a 58 year old female With a history of hepatitis C treated with interferon and cured from the virus more than 12 years ago. She follows at [place]. She has liver cirrhosis that has been stable until approximately 3 weeks ago when she noticed the onset of ascites. She was treat ed at [facility] from March 08-->, she was given albumin and Lasix initially but her creatinine increase in her diuretics were stopped. Echocardiogram showed preserved ejection fraction. Cardiology consultation is requested as there is a concern of cardiomegaly on a x-ray to see if there is any cardiac involvement to her current situation. Patient describes shortness of breath which she relates to her ascites and abdominal distention. Status post thoracentesis and is breathing much better. She otherwise denies chest pain, syncope, presyncope, paroxysmal nocturnal dyspnea, orthopnea or palpitations. She does have lower extremity swelling which was also stable up until recently whenever she had the decompensation and admission at [facility]. He was previously taking spironolactone and combination of losartan and hydrochlorothiazide, Which were discontinued. Review of Systems Review of Systems: All systems reviewed & are unremarkable except as noted in HPI and below Constitutional: Constitutional: Denies chills Eyes: Eyes: Denies blurry vision ENT: Reports Normal hearing present Cardiovascular: Cardiovascular: Denies chest pain and Reports leg edema Respiratory: Respiratory: Denies dyspnea Gastrointestinal: Gastrointestinal: Reports abdominal pain and Reports bloat ing Genitourinary: Genitourinary: Denies hematuria Musculoskeletal: Musculoskeletal: Denies arthralgias Integumentary/Breasts: Skin/Breast: Denies erythema Comments: Jaundiced Neurologic: Reports Abnormal speech present Psychiatric: Psychiatric: Denies anxiety Endocrine: Endocrine: Denies excessive sweating Hematologic/Lymphatic: Hematologic/Lymphatic: Denies easy bleeding Allergic/Immunologic: Allergic/Immunologic: Denies GI upset with certain foods PMFSH Past Medical History Medical History Acute renal failure Diabetes mellitus HTN (hypertension) Hypothyroidism (acquired) Liver failure Surgical History Surgical History AVM (arteriovenous malformation) 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 Family History Family History Father Acute myocardial infarction Diabetes mellitus Grandparent Acute myocardial infarction Mother Chronic obstructive pulmonary disease Social History Social History Smoking status: Never smoker Second hand tobacco smoke exposure: Yes Alcohol intake: never Substance use: never Do You Feel Safe in your Home?: Yes Lack of Transportation: No Lack of Food: Never True Current Housing: I Have Housing Concerned About Future Housing: No Difficulty Paying Gas/Electric Bills: No Difficulty Paying for Meds: No Currently Unemployed: No Education: Master's Degree or Higher Difficulty w/ Childcare or Family Care: No Gender identity (if verbalized by the patient): Female Spiritual care concerns: No Meds Home Medications and Allergies Home Medications Medication Instructions Recorded Confirmed Type citalopram 20 mg tablet 40 mg PO DAILY 09/22/19 03/21/24 History levothyroxine 112 mcg tablet 100 mcg PO DAILY 09/22/19 03/21/24 History lisinopril 20 1 tablet PO DAILY 09/22/19 03/21/24 History mg-hydrochlorothiazide 25 mg tablet carvedilol 6.25 mg tablet 6.25 mg PO DAILY 03/21/24 03/21/24 History insulin degludec 100 unit/mL (3 10 unit subcut DAILY 03/21/24 03/21/24 History mL) subcutaneous pen (Tresiba FlexTouch U-100 insulin) midodrine 5 mg tablet 1 mg PO BID PRN Hypotension 03/21/24 03/21/24 History ondansetron 4 mg disintegrating 4 mg PO Q6H PRN nausea/vomiting 03/21/24 03/21/24 History tablet pantoprazole 40 mg tablet,delayed 40 mg PO DAILY 03/21/24 03/21/24 History release pen needle, diabetic 32 gauge x 03/21/24 03/21/24 History 5/32 (BD Darya 2nd Gen Pen Needle) spironolactone 25 mg tablet 25 mg PO QID PRN swelling 03/21/24 03/21/24 History trazodone 50 mg tablet 50 mg PO HS 03/21/24 03/21/24 History Allergies Allergy/AdvReac Type Severity Reaction Status Date / Time succinylcholine Allergy Unknown Verified 03/21/24 00:10 Sulfa (Sulfonamide AdvReac Unknown Verified 03/21/24 00:10 Antibiotics) Vital Signs Vital Signs - 24 hr 03/20/24 17:42 03/20/24 21:40 03/21/24 00:34 Temperature 36.4 C L Pulse Rate 66 65 70 Respiratory Rate 18 16 18 Blood Pressure 120/47 L 130/55 L 106/67 Pulse Oximetry 100 100 100 Oxygen Delivery Room Air 03/21/24 06:07 03/21/24 08:53 03/21/24 08:50 Temperature 37.3 C Pulse Rate 72 72 Respiratory Rate 20 Blood Pressure 95/54 L Pulse Oximetry 97 Oxygen Delivery Room Air Exam Narrative: Awake alert oriented appears stated age Const: General: comfortable and no acute distress HENMT: Face/Nose/Sinus: Normal nares present Eyes: Sclera: scleral abnormality (Jaundiced) Neck: Neck: supple and no JVD Chest: Other: No reproducible chest wall pain to palpation Resp: Effort & Inspection: normal respiratory effort Auscultation: clear to auscultation bilaterally Cardio: Rate: regular rate Rhythm: regular rhythm GI: GI Palp: Yes Soft to palpation Auscultation: normal bowel sounds Skin: General skin exam: No normal color Other: Jaundiced Neuro: Speech: normal speech Sensory Exam: normal sensation Extrem: General: edema Psych: Mental Status: mental status grossly normal Affect: normal affect Results Labs and Meds 03/21/24 06:26 03/21/24 06:26 Lab results: Cardiac Enzymes 03/20/24 03/21/24 Range/Units 19:39 06:26 AST 161 H 130 H (14-36) U/L Troponin I < 0.012 (0.000-0.034) ng/mL Coagulation 03/20/24 Range/Units 19:39 PT 34.3 H (11.1-14.7) Seconds APTT 48.4 H (22.3-36.8) Seconds CBC 03/20/24 03/21/24 Range/Units 19:39 06:26 WBC 2.5 L 1.6 L* (4.5-10.0) K/mm3 RBC 2.62 L 2.40 L (4.2-5.4) M/mm3 Hgb 8.4 L 7.8 L (12.0-15.0) g/dL Hct 25.0 L 23.1 L (37.0-47.0) % Plt Count 45 L 48 L (150-375) k/mm3 Lymph # (Auto) 0.39 L 0.37 L (0.9-3.2) K/mm3 [place] # (Auto) 0.5 0.3 (0.1-0.6) K/mm3 Eos # (Auto) 0.1 0.1 (0-0.3) K/mm3 Baso # (Auto) 0.0 0.0 (0.0-0.1) K/mm3 Comprehensive Metabolic Panel 03/20/24 03/21/24 Range/Units 19:39 06:26 Sodium 135 L 135 L (137-145) mmol/L Potassium 4.0 4.1 (3.4-5.0) mmol/L Chloride 104 108 H (98-107) mmol/L Carbon Dioxide 24 23 (22-30) mmol/L BUN 21 H 20 H (7-17) mg/dL Creatinine 1.50 H 1.40 H (0.7-1.0) mg/dL Glucose 168 H 137 H (65-110) mg/dL Calcium 8.3 L 8.0 L (8.4-10.2) mg/dL AST 161 H 130 H (14-36) U/L ALT 132 H 114 H (6-35) U/L Alkaline Phosphatase 89 121 (38-126) U/L Total Protein 6.0 L 5.0 L (6.3-8.2) g/dL Albumin 3.3 L 2.8 L (3.5-5.1) g/dL Intake and Output 03/20/24 03/21/24 03/21/24 23:59 07:59 15:59 Intake Total 0 Output Total 1900 Balance 0 -1900 Intake: Oral 0 Output: Intraperitoneal Fluid 1900 Patient Weight 03/21/24 23:59 Weight 94.5 kg EKG is personally reviewed and interpreted showing normal sinus rhythm. Cannot rule out anteroseptal myocardial infarction. Abnormal ECG
[2024-03-21 13:40] LABS: Thyroid Stimulating Hormone 0.329 uIU/mL (0.465-4.680)
[2024-03-21 14:00] VITALS: BP 110/55; PULSE 68; RESP 14; TEMP 36.2; O2SAT 100
[2024-03-21 17:02] LABS: Glucose Point of Care 88 mg/dl (65-105)
[2024-03-21] MEDS: traZODone HCL 50 MG TABLET PO (20:44)
[2024-03-21 20:46] LABS: Glucose Point of Care 163 mg/dl (65-105)
[2024-03-21 21:25] VITALS: BP 110/75; PULSE 69; RESP 14; TEMP 36.7; O2SAT 100
[2024-03-21 22:20] VITALS: PULSE 69; RESP 26; O2SAT 100
[2024-03-22] VITALS (9 sets, daily range): BP systolic 105–133; BP diastolic 49–70; PULSE 66–77; RESP 13–20; TEMP 36.4–36.8; O2SAT 98–100
[2024-03-22] MEDS: WATER FOR IRRIGATION, STERILE 1,000 ML BOTTLE 1000 ML (02:31)
[2024-03-22] MEDS: LEVOTHYROXINE SODIUM 100 MCG TABLET PO (04:44)
[2024-03-22] MEDS: ALBUMIN HUMAN 25% 25 GM/100 ML 200 ML IVPB (04:47)
[2024-03-22 07:38] LABS: Hematocrit 21.2 % (37.0-47.0); Immature Platelet Fraction Pct 3.3 % (0.9-11.2); Mean Corpuscular HGB Conc 32.5 g/dl (32-36); Mean Corpuscular Hemoglobin 31.5 pg (26-34); Mean Corpuscular Volume 96.8 fl (80-100); Mean Platelet Volume 10.7 fl (7.4-10.4); Platelet Count Result 47 k/mm3 (150-375); Red Blood Count 2.19 M/mm3 (4.2-5.4); Red Cell Distribution Width 19.7 % (11.5-14.5)
[2024-03-22 07:46] LABS: Hemoglobin 6.9 g/dL (12.0-15.0); White Blood Count 1.1 K/mm3 (4.5-10.0)
[2024-03-22 08:09] LABS: Glucose Point of Care 101 mg/dl (65-105)
[2024-03-22] MEDS: CITALOPRAM HYDROBROMIDE 20 MG TABLET 40 MG PO (08:58)
[2024-03-22] MEDS: PANTOPRAZOLE 40 MG TABLET PO ×2 (08:58→17:27)
[2024-03-22] MEDS: carvediloL 6.25 MG TABLET PO (08:58)
[2024-03-22 09:01] LABS: Alanine Aminotransferase 78 U/L (6-35); Albumin Level 3.8 g/dL (3.5-5.1); Alkaline Phosphatase 84 U/L (38-126); Anion Gap 8 mmol/L (4-12); Aspartate Amino Transferase 80 U/L (14-36); Bilirubin,Total 9.1 mg/dL (0.2-1.3); Blood Urea Nitrogen 18 mg/dL (7-17); Calcium 8.5 mg/dL (8.4-10.2); Carbon Dioxide 23 mmol/L (22-30); Chloride 108 mmol/L (98-107); Estimated CRCL calculation 41 ml/min; Estimated Glomerular Filt Rate 39; Glucose 86 mg/dL (65-110); Potassium 4.4 mmol/L (3.4-5.0); Sodium 139 mmol/L (137-145)
--- NOTE | 2024-03-22 09:35 | PM.PNCARD ---
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 States that swelling has gone down significantly Review of Systems Constitutional: Constitutional: Reports as per HPI Cardiovascular: Cardiovascular: Reports as per HPI Respiratory: Respiratory: Reports as per HPI Exam Const: General: comfortable HENMT: Mouth: Yes moist mucous membranes Eyes: EOM: EOMs intact bilaterally Neck: Other: Hepatic jugular reflux positive Resp: Auscultation: clear to auscultation bilaterally Cardio: Rate: regular rate Rhythm: regular rhythm GI: GI Palp: Yes Soft to palpation Neuro: Speech: normal speech Extrem: General: pedal edema Psych: Affect: normal affect Objective Data Vital Signs Vital Signs: Vital Signs - 24 hr 03/21/24 14:00 03/21/24 21:25 03/21/24 22:20 Temperature 36.2 C L 36.7 C Pulse Rate 68 69 69 Respiratory Rate 14 14 26 H Blood Pressure 110/55 L 110/75 Pulse Oximetry 100 100 100 Oxygen Delivery Autopap 03/22/24 02:43 03/22/24 05:16 03/22/24 08:58 Temperature 36.8 C Pulse Rate 69 69 Respiratory Rate 13 13 Blood Pressure 105/60 Pulse Oximetry 99 Oxygen Delivery Autopap Intake/Output Intake/Output: Intake & Output 03/19/24 03/20/24 03/21/24 03/22/24 23:59 23:59 23:59 23:59 Intake Total 750 350 Output Total 1900 Balance -1150 350 Meds/Results Medications: Active Medications Generic Name Dose Route Start Last Admin Trade Name Freq PRN Reason Stop Dose Admin Carvedilol 6.25 mg 03/21/24 09:00 03/22/24 08:58 Carvedilol 6.25 Mg Tablet PO 6.25 mg DAILY JUANJOSE Administration Citalopram Hydrobromide 40 mg 03/21/24 09:00 03/22/24 08:58 Citalopram Hydrobromide 20 Mg Tablet PO 40 mg DAILY JUANJOSE Administration Dextrose 12.5 gm 03/21/24 12:20 Dextrose 50% 25 Gm/50 Ml Syringe IV PUSH PRN PRN Hypoglycemia Protocol Glucagon 1 mg 03/21/24 12:20 Glucagon For Inj 1 Mg Vial IM PRN PRN Hypoglycemia Protocol Glucose 15 gm 03/21/24 12:20 Glucose Oral Gel 15 Gm Of Glucse In 37.5 Gm Tube PO PRN PRN Hypoglycemia Protocol Dextrose 1,000 mls @ 100 mls/hr 03/21/24 12:20 Dextrose 5% 1,000 Ml IVPB PRN PRN Hypoglycemia Protocol Albumin Human 100 mls @ 60 mls/hr 03/22/24 09:00 Albutein IVPB 03/22/24 10:39 ONCE ONE Sodium Chloride 250 mls @ 30 mls/hr 03/22/24 07:51 Normal Saline Iv IV CONT 03/22/24 16:10 .[id number] STA Insulin Aspart 4 - 8 units 03/21/24 12:25 03/22/24 08:46 Insulin Aspart (*Bkc) 100 Units/Ml SUB-Q Not Given TIDWM [facility] Protocol Insulin Aspart 2 - 4 units 03/21/24 21:00 03/21/24 21:05 Insulin Aspart (*Bkc) 100 Units/Ml SUB-Q Not Given HS JUANJOSE Protocol Levothyroxine Sodium 100 mcg 03/21/24 06:30 03/22/24 04:44 Levothyroxine Sodium 100 Mcg Tablet PO 100 mcg DAILY@0630 JUANJOSE Administration Midodrine 5 mg 03/21/24 04:28 Midodrine Hcl 2.5 Mg Tablet PO BID PRN Hypotension Miscellaneous Information 0 each 03/21/24 00:01 Midodrine-Please Give Specific Parameter For Hypotension XX 04/20/24 00:00 CLARIFY JUANJOSE Pantoprazole Sodium 40 mg 03/21/24 09:00 03/22/24 08:58 Pantoprazole 40 Mg Tablet PO 40 mg DAILY JUANJOSE Administration Perflutren Lipid Microsphere 0 ml 03/21/24 07:26 Perflutren Lipid Microspheres 1.5 Ml Vial Diluted To 10 Ml Total Volume IV PUSH 03/24/24 07:26 ONCE PRN adequate visualization Protocol Trazodone HCl 50 mg 03/21/24 21:00 03/21/24 20:44 Trazodone Hcl 50 Mg Tablet PO 50 mg HS JUANJOSE Administration Radiology Results: ITS Impressions Chest X-Ray 03/20/24 20:42 IMPRESSION: Cardiomegaly with congestive kendra. Cardiac decompensation is not excluded. No other definite abnormality. Abdomen/Pelvis CT 03/20/24 23:07 IMPRESSION: 1. Liver cirrhosis. 2. Splenomegaly 3. Gross ascites. 4. Portal hypertension Paracentesis Ultrasound 03/21/24 12:21 IMPRESSION: 1. Successful ultrasound-guided paracentesis yielding 1900 mL of yellow fluid. Labs Labs: Laboratory Results - last 24 hr 03/21/24 03/21/24 03/21/24 06:21 11:47 16:53 WBC RBC Hgb Hct MCV MCH MCHC RDW Plt Count MPV Immature Gran % (Auto) Neut % (Auto) Lymph % (Auto) [place] % (Auto) Eos % (Auto) Baso % (Auto) Lymph # (Auto) [place] # (Auto) Eos # (Auto) Baso # (Auto) Abs Immat Gran (auto) Absolute Neuts (auto) Absolute Nucleated RBC Nucleated RBC % % Immature Plt Fraction Sodium Potassium Chloride Carbon Dioxide Anion Gap BUN Creatinine Estim Creat Clear Calc Estimated GFR Glucose POC Capillary Glucose 88 Hemoglobin A1c 5.0 Calcium Total Bilirubin AST ALT Alkaline Phosphatase Total Protein Albumin TSH 0.329 L Peritoneal Source Peritoneal fluid Peritoneal Color Yellow Peritoneal Appearance Clear Peritoneal RBC < 2000 Periton Nuc Cells 3 Periton Neutrophils 4 Periton Lymphocytes 81 Periton Mesothelial 2 Periton Macrophages 13 Crossmatch 03/21/24 03/22/24 03/22/24 20:15 06:44 07:51 WBC 1.1 L* RBC 2.19 L Hgb 6.9 L* Hct 21.2 L MCV 96.8 MCH 31.5 MCHC 32.5 RDW 19.7 H Plt Count 47 L MPV 10.7 H Immature Gran % (Auto) Not Reportable Neut % (Auto) Not Reportable Lymph % (Auto) Not Reportable [place] % (Auto) Not Reportable Eos % (Auto) Not Reportable Baso % (Auto) Not Reportable Lymph # (Auto) Not Reportable [place] # (Auto) Not Reportable Eos # (Auto) Not Reportable Baso # (Auto) Not Reportable Abs Immat Gran (auto) Not Reportable Absolute Neuts (auto) Not Reportable Absolute Nucleated RBC Not Reportable Nucleated RBC % Not Reportable % Immature Plt Fraction 3.3 Sodium 139 Potassium 4.4 Chloride 108 H Carbon Dioxide 23 Anion Gap 8 BUN 18 H Creatinine 1.40 H Estim Creat Clear Calc 41 Estimated GFR 39 L Glucose 86 POC Capillary Glucose 163 H 101 Hemoglobin A1c Calcium 8.5 Total Bilirubin 9.1 H AST 80 H ALT 78 H Alkaline Phosphatase 84 Total Protein 6.0 L Albumin 3.8 TSH Peritoneal Source Peritoneal Color Peritoneal Appearance Peritoneal RBC Periton Nuc Cells Periton Neutrophils Periton Lymphocytes Periton Mesothelial Periton Macrophages Crossmatch 03/22/24 09:01 WBC RBC Hgb Hct MCV MCH MCHC RDW Plt Count MPV Immature Gran % (Auto) Neut % (Auto) Lymph % (Auto) [place] % (Auto) Eos % (Auto) Baso % (Auto) Lymph # (Auto) [place] # (Auto) Eos # (Auto) Baso # (Auto) Abs Immat Gran (auto) Absolute Neuts (auto) Absolute Nucleated RBC Nucleated RBC % % Immature Plt Fraction Sodium Potassium Chloride Carbon Dioxide Anion Gap BUN Creatinine Estim Creat Clear Calc Estimated GFR Glucose POC Capillary Glucose Hemoglobin A1c Calcium Total Bilirubin AST ALT Alkaline Phosphatase Total Protein Albumin TSH Peritoneal Source Peritoneal Color Peritoneal Appearance Peritoneal RBC Periton Nuc Cells Periton Neutrophils Periton Lymphocytes Periton Mesothelial Periton Macrophages Crossmatch See Detail
[2024-03-22] MEDS: ALBUMIN HUMAN 25% 25 GM/100 ML 100 ML IVPB (09:37)
[2024-03-22 09:56] LABS: Lymphocytes Absolute Manual 0.27 K/mm3 (1.1-4.5); Neutrophils Percent Manual 75 % (46-73); Platelet Estimate Decreased (Adequate); Schistocytes Rare; Total Cells Counted 100
[2024-03-22 09:57] LABS: Burr Cells 1+; Hypochromasia 1+; Ovalocytes 1+
[2024-03-22] MEDS: cefTRIAXone 2 GM/NS 100 ML 2 GM/100 ML BAG IVPB (11:34)
[2024-03-22 11:38] LABS: Glucose Point of Care 115 mg/dl (65-105)
--- NOTE | 2024-03-22 13:17 | P.PNIM_ITS ---
Progress Note: A&P Assessment and Plan (1) Volume overload: Code(s): E87.70 - Fluid overload, unspecified Status: Acute (2) Pancytopenia: Code(s): D61.818 - Other pancytopenia Status: Acute (3) Hepatorenal syndrome with acute kidney injury: Code(s): K76.7 - Hepatorenal syndrome; N17.9 - Acute kidney failure, unspecified Status: Acute (4) Liver cirrhosis: Code(s): K74.60 - Unspecified cirrhosis of liver Status: Acute (5) Elevated liver enzymes: Code(s): R74.8 - Abnormal levels of other serum enzymes Status: Acute (6) Acute renal failure: Qualifiers: Acute renal failure type: unspecified Qualified Code(s): N17.9 - Acute kidney failure, unspecified Code(s): N17.9 - Acute kidney failure, unspecified Status: Acute Plan 58-year-old female with past medical history of KENNEY, hepatitis-C status post treatment, recently discharged from [facility] after being treated for anasarca presented with abnormal labs, worsening liver and kidney functions. CT abdomen and pelvis showed liver cirrhosis, splenomegaly with ascites, portal hypertension, chest x-ray with cardiomegaly and congestion. GI was consulted. Status post paracentesis, 1.9 L of fluid was removed. 1. Acute severely decompensated liver cirrhosis with ascites: Status post paracentesis, 1.9 L of fluid was removed Fluid assessment has been negative for infection till date Will start on ceftriaxone empirically until SBP is completely ruled out Await MRCP in setting of disproportionately elevated bilirubin levels GI is following Appreciate cardiology help, has signed off Continue with PPI Monitor for daily bowel movement, low threshold to add lactulose Patient follows up with horticultural technical officer at [facility], discussed with patient about initiating conversation with her horticultural technical officer about getting on transplant list 2. Dyllan I on pre-existing CKD: ? Hepatorenal syndrome Will get Nephrology on board as well Monitor electrolytes Recheck BMP in a.m. Avoid nephrotoxins 3. Pancytopenia: Secondary to decompensated liver cirrhosis Will transfuse 1 unit of PRBC today 4. Code status: Full 5. DVT prophylaxis: SCDs 6. Disposition: Pending improvement Time Spent With Patient Time with patient: 25 - 35 minutes Subjective Date/time seen: 03/22/24 13:17 Interval history: No acute events overnight, continues to be jaundiced Review of Systems Review of Systems: All systems reviewed & are unremarkable except as noted in HPI and below Exam Narrative: General: In no acute distress, well nourished Head: atraumatic, no encephalopathy Eyes: PERRLA, sclera jaundice ENT: moist mucous membranes, nasal passages clear Neck: supple, no JVD, no adenopathy, trachea midline Cardiac: Normal S1 and S2. No murmur, gallops or friction rubs, peripheral pulses intact. Respiratory: Lungs clear to auscultation, no adventitious lung sounds , currently on room air Gastrointestinal: soft, non-distended, non-tender, normoactive bowel sounds. : voiding without difficulty. Extremities: moves all extremities well, no edema, good ROM, strength 5/5 Skin: jaundice Neuro: Alert and oriented x4, cranial nerves intact, no neuro deficits. Psych: normal mood, normal affect, interactive Objective Data Vital Signs Vital Signs: Vital Signs - 24 hr 03/21/24 14:00 03/21/24 21:25 03/21/24 22:20 Temperature 97.1 F L 98.0 F Pulse Rate 68 69 69 Respiratory Rate 14 14 26 H Blood Pressure 110/55 L 110/75 Pulse Oximetry 100 100 100 Oxygen Delivery Autopap 03/22/24 02:43 03/22/24 05:16 03/22/24 08:58 Temperature 98.2 F Pulse Rate 69 69 Respiratory Rate 13 13 Blood Pressure 105/60 Pulse Oximetry 99 Oxygen Delivery Autopap 03/22/24 08:55 Temperature Pulse Rate Respiratory Rate Blood Pressure Pulse Oximetry Oxygen Delivery Room Air Intake/Output Intake/Output: Intake & Output 03/19/24 03/20/24 03/21/24 03/22/24 23:59 23:59 23:59 23:59 Intake Total 750 590 Output Total 1900 Balance -1150 590 Meds/Results Medications: Active Medications Generic Name Dose Route Start Last Admin Trade Name Freq PRN Reason Stop Dose Admin Carvedilol 6.25 mg 03/21/24 09:00 03/22/24 08:58 Carvedilol 6.25 Mg Tablet PO 6.25 mg DAILY JUANJOSE Administration Citalopram Hydrobromide 40 mg 03/21/24 09:00 03/22/24 08:58 Citalopram Hydrobromide 20 Mg Tablet PO 40 mg DAILY JUANJOSE Administration Dextrose 12.5 gm 03/21/24 12:20 Dextrose 50% 25 Gm/50 Ml Syringe IV PUSH PRN PRN Hypoglycemia Protocol Glucagon 1 mg 03/21/24 12:20 Glucagon For Inj 1 Mg Vial IM PRN PRN Hypoglycemia Protocol Glucose 15 gm 03/21/24 12:20 Glucose Oral Gel 15 Gm Of Glucse In 37.5 Gm Tube PO PRN PRN Hypoglycemia Protocol Dextrose 1,000 mls @ 100 mls/hr 03/21/24 12:20 Dextrose 5% 1,000 Ml IVPB PRN PRN Hypoglycemia Protocol Sodium Chloride 250 mls @ 30 mls/hr 03/22/24 07:51 Normal Saline Iv IV CONT 03/22/24 16:10 .[id number] STA Ceftriaxone Sodium 2 gm in 100 mls @ 200 mls/hr 03/22/24 11:00 03/22/24 11:34 Rocephin 2 Gm/Ns 100 Ml IVPB 200 mls/hr Q24H JUANJOSE Administration Levothyroxine Sodium 100 mcg 03/21/24 06:30 03/22/24 04:44 Levothyroxine Sodium 100 Mcg Tablet PO 100 mcg DAILY@0630 JUANJOSE Administration Midodrine 5 mg 03/21/24 04:28 Midodrine Hcl 2.5 Mg Tablet PO BID PRN Hypotension Miscellaneous Information 0 each 03/21/24 00:01 Midodrine-Please Give Specific Parameter For Hypotension XX 04/20/24 00:00 CLARIFY JUANJOSE Pantoprazole Sodium 40 mg 03/22/24 17:00 Pantoprazole 40 Mg Tablet PO BID JUANJOSE Perflutren Lipid Microsphere 0 ml 03/21/24 07:26 Perflutren Lipid Microspheres 1.5 Ml Vial Diluted To 10 Ml Total Volume IV PUSH 03/24/24 07:26 ONCE PRN adequate visualization Protocol Trazodone HCl 50 mg 03/21/24 21:00 03/21/24 20:44 Trazodone Hcl 50 Mg Tablet PO 50 mg HS JUANJOSE Administration Radiology Results: ITS Impressions Chest X-Ray 03/20/24 20:42 IMPRESSION: Cardiomegaly with congestive kendra. Cardiac decompensation is not excluded. No other definite abnormality. Abdomen/Pelvis CT 03/20/24 23:07 IMPRESSION: 1. Liver cirrhosis. 2. Splenomegaly 3. Gross ascites. 4. Portal hypertension Paracentesis Ultrasound 03/21/24 12:21 IMPRESSION: 1. Successful ultrasound-guided paracentesis yielding 1900 mL of yellow fluid. Labs Labs: Laboratory Results - last 24 hr 03/21/24 03/21/24 03/21/24 06:21 11:47 16:53 WBC RBC Hgb Hct MCV MCH MCHC RDW Plt Count MPV Immature Gran % (Auto) Neut % (Auto) Lymph % (Auto) [place] % (Auto) Eos % (Auto) Baso % (Auto) Lymph # (Auto) [place] # (Auto) Eos # (Auto) Baso # (Auto) Abs Immat Gran (auto) Absolute Neuts (auto) Absolute Nucleated RBC Total Counted Neutrophils % (Manual) Lymphocytes % (Manual) Nucleated RBC % Abs Lymphs (Manual) Platelet Estimate % Immature Plt Fraction Hypochromasia Ovalocytes Karolyn Cells Schistocytes Sodium Potassium Chloride Carbon Dioxide Anion Gap BUN Creatinine Estim Creat Clear Calc Estimated GFR Glucose POC Capillary Glucose 88 Hemoglobin A1c 5.0 Calcium Total Bilirubin AST ALT Alkaline Phosphatase Total Protein Albumin TSH 0.329 L Peritoneal Source Peritoneal fluid Peritoneal Color Yellow Peritoneal Appearance Clear Peritoneal RBC < 2000 Periton Nuc Cells 3 Periton Neutrophils 4 Periton Lymphocytes 81 Periton Mesothelial 2 Periton Macrophages 13 Blood Type Antibody Screen Crossmatch 03/21/24 03/22/24 03/22/24 20:15 06:44 07:51 WBC 1.1 L* RBC 2.19 L Hgb 6.9 L* Hct 21.2 L MCV 96.8 MCH 31.5 MCHC 32.5 RDW 19.7 H Plt Count 47 L MPV 10.7 H Immature Gran % (Auto) Not Reportable Neut % (Auto) Not Reportable Lymph % (Auto) Not Reportable [place] % (Auto) Not Reportable Eos % (Auto) Not Reportable Baso % (Auto) Not Reportable Lymph # (Auto) Not Reportable [place] # (Auto) Not Reportable Eos # (Auto) Not Reportable Baso # (Auto) Not Reportable Abs Immat Gran (auto) Not Reportable Absolute Neuts (auto) Not Reportable Absolute Nucleated RBC Not Reportable Total Counted 100 Neutrophils % (Manual) 75 H Lymphocytes % (Manual) 25.0 Nucleated RBC % Not Reportable Abs Lymphs (Manual) 0.27 L Platelet Estimate Decreased % Immature Plt Fraction 3.3 Hypochromasia 1+ Ovalocytes 1+ [place] Cells 1+ Schistocytes Rare Sodium 139 Potassium 4.4 Chloride 108 H Carbon Dioxide 23 Anion Gap 8 BUN 18 H Creatinine 1.40 H Estim Creat Clear Calc 41 Estimated GFR 39 L Glucose 86 POC Capillary Glucose 163 H 101 Hemoglobin A1c Calcium 8.5 Total Bilirubin 9.1 H AST 80 H ALT 78 H Alkaline Phosphatase 84 Total Protein 6.0 L Albumin 3.8 TSH Peritoneal Source Peritoneal Color Peritoneal Appearance Peritoneal RBC Periton Nuc Cells Periton Neutrophils Periton Lymphocytes Periton Mesothelial Periton Macrophages Blood Type Antibody Screen Crossmatch 03/22/24 03/22/24 09:01 11:30 WBC RBC Hgb Hct MCV MCH MCHC RDW Plt Count MPV Immature Gran % (Auto) Neut % (Auto) Lymph % (Auto) [place] % (Auto) Eos % (Auto) Baso % (Auto) Lymph # (Auto) [place] # (Auto) Eos # (Auto) Baso # (Auto) Abs Immat Gran (auto) Absolute Neuts (auto) Absolute Nucleated RBC Total Counted Neutrophils % (Manual) Lymphocytes % (Manual) Nucleated RBC % Abs Lymphs (Manual) Platelet Estimate % Immature Plt Fraction Hypochromasia Ovalocytes [place] Cells Schistocytes Sodium Potassium Chloride Carbon Dioxide Anion Gap BUN Creatinine Estim Creat Clear Calc Estimated GFR Glucose POC Capillary Glucose 115 H Hemoglobin A1c Calcium Total Bilirubin AST ALT Alkaline Phosphatase Total Protein Albumin TSH Peritoneal Source Peritoneal Color Peritoneal Appearance Peritoneal RBC Periton Nuc Cells Periton Neutrophils Periton Lymphocytes Periton Mesothelial Periton Macrophages Blood Type AB Positive Antibody Screen Negative Crossmatch See Detail
[2024-03-22] MEDS: SODIUM CHLORIDE 0.9% IV 250 ML 30 ML IV CONT (14:13)
--- NOTE | 2024-03-22 16:50 | WPDGIPROGNO ---
Progress Note: A&P Assessment and Plan (1) Liver cirrhosis: Code(s): K74.60 - Unspecified cirrhosis of liver Status: Acute Assessment and Plan: Patient with cirrhosis, admitted with ascites and renal failure, presumably prerenal secondary to diuretic use. Slight improvement in creatinine, we will see tendency with labs tomorrow. Contact already made at [facility] for liver transplant referral. Will wait for a better creatinine level and coordinate the best date to have her seen at that institution, Given the severe decompensation she is currently going through. MRCP done today, no obstructive lesions. Therefore severe jaundice represents only decompesated liver failure, having ruled out obstruction. Subjective Date/time seen: 03/22/24 16:50 Interval history: patient feels more tired today, received albumin 50 g and is currently receiving PRBC 1 unit. No fever, no SOB or abdominal pain. Exam Narrative: General: In no acute distress, well nourished Head: atraumatic, no encephalopathy Eyes: PERRLA, sclera jaundice ENT: moist mucous membranes, nasal passages clear Neck: supple, no JVD, no adenopathy, trachea midline Cardiac: Normal S1 and S2. No murmur, gallops or friction rubs, peripheral pulses intact. Respiratory: Lungs clear to auscultation, no adventitious lung sounds , currently on room air Gastrointestinal: soft, non-distended, non-tender, normoactive bowel sounds. : voiding without difficulty. Extremities: moves all extremities well, no edema, good ROM, strength 5/5 Skin: jaundice Neuro: Alert and oriented x4, cranial nerves intact, no neuro deficits. Psych: normal mood, normal affect, interactive Objective Data Vital Signs Vital Signs: Vital Signs - 24 hr 03/21/24 21:25 03/21/24 22:20 03/22/24 02:43 Temperature 98.0 F Pulse Rate 69 69 Respiratory Rate 14 26 H 13 Blood Pressure 110/75 Pulse Oximetry 100 100 Oxygen Delivery Autopap Autopap 03/22/24 05:16 03/22/24 08:58 03/22/24 08:55 Temperature 98.2 F Pulse Rate 69 69 Respiratory Rate 13 Blood Pressure 105/60 Pulse Oximetry 99 Oxygen Delivery Room Air 03/22/24 14:03 03/22/24 14:00 03/22/24 14:19 Temperature 98.1 F 98.1 F 97.6 F Pulse Rate 69 69 69 Respiratory Rate 18 18 16 Blood Pressure 122/49 L 122/49 L 121/57 L Pulse Oximetry 100 100 Oxygen Delivery 03/22/24 15:20 03/22/24 15:20 03/22/24 16:01 Temperature 98.0 F 98.2 F 98.2 F Pulse Rate 66 71 67 Respiratory Rate 20 16 16 Blood Pressure 114/70 108/69 110/69 Pulse Oximetry 100 99 100 Oxygen Delivery Intake/Output Intake/Output: Intake & Output 03/19/24 03/20/24 03/21/24 03/22/24 23:59 23:59 23:59 23:59 Intake Total 950 1580 Output Total 1900 Balance -950 1580 Meds/Results Medications: Active Medications Generic Name Dose Route Start Last Admin Trade Name Freq PRN Reason Stop Dose Admin Carvedilol 6.25 mg 03/21/24 09:00 03/22/24 08:58 Carvedilol 6.25 Mg Tablet PO 6.25 mg DAILY JUANJOSE Administration Citalopram Hydrobromide 40 mg 03/21/24 09:00 03/22/24 08:58 Citalopram Hydrobromide 20 Mg Tablet PO 40 mg DAILY JUANJOSE Administration Dextrose 12.5 gm 03/21/24 12:20 Dextrose 50% 25 Gm/50 Ml Syringe IV PUSH PRN PRN Hypoglycemia Protocol Glucagon 1 mg 03/21/24 12:20 Glucagon For Inj 1 Mg Vial IM PRN PRN Hypoglycemia Protocol Glucose 15 gm 03/21/24 12:20 Glucose Oral Gel 15 Gm Of Glucse In 37.5 Gm Tube PO PRN PRN Hypoglycemia Protocol Dextrose 1,000 mls @ 100 mls/hr 03/21/24 12:20 Dextrose 5% 1,000 Ml IVPB PRN PRN Hypoglycemia Protocol Ceftriaxone Sodium 2 gm in 100 mls @ 200 mls/hr 03/22/24 11:00 03/22/24 12:04 Rocephin 2 Gm/Ns 100 Ml IVPB Infused Q24H JUANJOSE Infusion Levothyroxine Sodium 100 mcg 03/21/24 06:30 03/22/24 04:44 Levothyroxine Sodium 100 Mcg Tablet PO 100 mcg DAILY@0630 JUANJOSE Administration Midodrine 5 mg 03/21/24 04:28 Midodrine Hcl 2.5 Mg Tablet PO BID PRN Hypotension Miscellaneous Information 0 each 03/21/24 00:01 Midodrine-Please Give Specific Parameter For Hypotension XX 04/20/24 00:00 CLARIFY JUANJOSE Pantoprazole Sodium 40 mg 03/22/24 17:00 Pantoprazole 40 Mg Tablet PO BID JUANJOSE Perflutren Lipid Microsphere 0 ml 03/21/24 07:26 Perflutren Lipid Microspheres 1.5 Ml Vial Diluted To 10 Ml Total Volume IV PUSH 03/24/24 07:26 ONCE PRN adequate visualization Protocol Trazodone HCl 50 mg 03/21/24 21:00 03/21/24 20:44 Trazodone Hcl 50 Mg Tablet PO 50 mg HS JUANJOSE Administration Radiology Results: ITS Impressions Chest X-Ray 03/20/24 20:42 IMPRESSION: Cardiomegaly with congestive kendra. Cardiac decompensation is not excluded. No other definite abnormality. Abdomen/Pelvis CT 03/20/24 23:07 IMPRESSION: 1. Liver cirrhosis. 2. Splenomegaly 3. Gross ascites. 4. Portal hypertension Paracentesis Ultrasound 03/21/24 12:21 IMPRESSION: 1. Successful ultrasound-guided paracentesis yielding 1900 mL of yellow fluid. MRCP 03/22/24 13:22 IMPRESSION: 1. Cirrhosis of the liver with portal venous hypertension. 2. Moderate volume of ascites. Labs Labs: Laboratory Results - last 24 hr 03/21/24 03/21/24 03/21/24 06:21 16:53 20:15 WBC RBC Hgb Hct MCV MCH MCHC RDW Plt Count MPV Immature Gran % (Auto) Neut % (Auto) Lymph % (Auto) [place] % (Auto) Eos % (Auto) Baso % (Auto) Lymph # (Auto) [place] # (Auto) Eos # (Auto) Baso # (Auto) Abs Immat Gran (auto) Absolute Neuts (auto) Absolute Nucleated RBC Total Counted Neutrophils % (Manual) Lymphocytes % (Manual) Nucleated RBC % Abs Lymphs (Manual) Platelet Estimate % Immature Plt Fraction Hypochromasia Ovalocytes [place] Cells Schistocytes Sodium Potassium Chloride Carbon Dioxide Anion Gap BUN Creatinine Estim Creat Clear Calc Estimated GFR Glucose POC Capillary Glucose 88 163 H Hemoglobin A1c 5.0 Calcium Total Bilirubin AST ALT Alkaline Phosphatase Total Protein Albumin Blood Type Antibody Screen Crossmatch 03/22/24 03/22/24 03/22/24 06:44 07:51 09:01 WBC 1.1 L* RBC 2.19 L Hgb 6.9 L* Hct 21.2 L MCV 96.8 MCH 31.5 MCHC 32.5 RDW 19.7 H Plt Count 47 L MPV 10.7 H Immature Gran % (Auto) Not Reportable Neut % (Auto) Not Reportable Lymph % (Auto) Not Reportable [place] % (Auto) Not Reportable Eos % (Auto) Not Reportable Baso % (Auto) Not Reportable Lymph # (Auto) Not Reportable [place] # (Auto) Not Reportable Eos # (Auto) Not Reportable Baso # (Auto) Not Reportable Abs Immat Gran (auto) Not Reportable Absolute Neuts (auto) Not Reportable Absolute Nucleated RBC Not Reportable Total Counted 100 Neutrophils % (Manual) 75 H Lymphocytes % (Manual) 25.0 Nucleated RBC % Not Reportable Abs Lymphs (Manual) 0.27 L Platelet Estimate Decreased % Immature Plt Fraction 3.3 Hypochromasia 1+ Ovalocytes 1+ Karolyn Cells 1+ Schistocytes Rare Sodium 139 Potassium 4.4 Chloride 108 H Carbon Dioxide 23 Anion Gap 8 BUN 18 H Creatinine 1.40 H Estim Creat Clear Calc 41 Estimated GFR 39 L Glucose 86 POC Capillary Glucose 101 Hemoglobin A1c Calcium 8.5 Total Bilirubin 9.1 H AST 80 H ALT 78 H Alkaline Phosphatase 84 Total Protein 6.0 L Albumin 3.8 Blood Type AB Positive Antibody Screen Negative Crossmatch See Detail 03/22/24 11:30 WBC RBC Hgb Hct MCV MCH MCHC RDW Plt Count MPV Immature Gran % (Auto) Neut % (Auto) Lymph % (Auto) [place] % (Auto) Eos % (Auto) Baso % (Auto) Lymph # (Auto) [place] # (Auto) Eos # (Auto) Baso # (Auto) Abs Immat Gran (auto) Absolute Neuts (auto) Absolute Nucleated RBC Total Counted Neutrophils % (Manual) Lymphocytes % (Manual) Nucleated RBC % Abs Lymphs (Manual) Platelet Estimate % Immature Plt Fraction Hypochromasia Ovalocytes [place] Cells Schistocytes Sodium Potassium Chloride Carbon Dioxide Anion Gap BUN Creatinine Estim Creat Clear Calc Estimated GFR Glucose POC Capillary Glucose 115 H Hemoglobin A1c Calcium Total Bilirubin AST ALT Alkaline Phosphatase Total Protein Albumin Blood Type Antibody Screen Crossmatch
[2024-03-22 18:20] LABS: Glucose Point of Care 227 mg/dl (65-105)
[2024-03-22] MEDS: traZODone HCL 50 MG TABLET PO (19:58)
[2024-03-22 22:07] LABS: Glucose Point of Care 108 mg/dl (65-105)
[2024-03-23 04:15] VITALS: BP 111/62; PULSE 72; RESP 20; TEMP 37.1; O2SAT 100
[2024-03-23 06:09] LABS: Hematocrit 24.2 % (37.0-47.0); Hemoglobin 7.9 g/dL (12.0-15.0); Immature Platelet Fraction Pct 3.2 % (0.9-11.2); Mean Corpuscular HGB Conc 32.6 g/dl (32-36); Mean Corpuscular Hemoglobin 31.2 pg (26-34); Mean Corpuscular Volume 95.7 fl (80-100); Mean Platelet Volume 10.6 fl (7.4-10.4); Platelet Count Result 47 k/mm3 (150-375); Red Blood Count 2.53 M/mm3 (4.2-5.4); Red Cell Distribution Width 19.1 % (11.5-14.5)
[2024-03-23 06:33] LABS: Alanine Aminotransferase 62 U/L (6-35); Albumin Level 3.9 g/dL (3.5-5.1); Alkaline Phosphatase 98 U/L (38-126); Anion Gap 9 mmol/L (4-12); Aspartate Amino Transferase 61 U/L (14-36); Bilirubin,Total 8.8 mg/dL (0.2-1.3); Blood Urea Nitrogen 16 mg/dL (7-17); Calcium 8.8 mg/dL (8.4-10.2); Carbon Dioxide 23 mmol/L (22-30); Chloride 107 mmol/L (98-107); Estimated CRCL calculation 48 ml/min; Estimated Glomerular Filt Rate 46; Glucose 119 mg/dL (65-110); Potassium 4.3 mmol/L (3.4-5.0); Sodium 139 mmol/L (137-145)
[2024-03-23] MEDS: LEVOTHYROXINE SODIUM 100 MCG TABLET PO (06:51)
[2024-03-23 07:15] LABS: White Blood Count 1.4 K/mm3 (4.5-10.0)
[2024-03-23 07:21] LABS: Hypochromasia 1+; Platelet Estimate Decreased (Adequate)
[2024-03-23 07:22] LABS: Anisocytosis 1+; Burr Cells 1+; Neutrophils Percent Manual 58 % (46-73); Ovalocytes 1+; Schistocytes Rare; Target Cells 1+; Total Cells Counted 100
[2024-03-23 07:23] LABS: Band Neutrophils Percent 5 % (0-6); Eosinophils Absolute Manual 0.07 K/mm3 (0.02-0.50); Eosinophils Percent Manual 5 % (0-4); Lymphocytes Absolute Manual 0.44 K/mm3 (1.1-4.5); Lymphocytes Percent Manual 32 % (18-44); Neutrophils Absolute Manual 0.88 K/mm3 (1.7-7.2)
[2024-03-23 07:46] LABS: Glucose Point of Care 138 mg/dl (65-105)
[2024-03-23 08:37] VITALS: PULSE 74
[2024-03-23] MEDS: PANTOPRAZOLE 40 MG TABLET PO (08:37)
[2024-03-23] MEDS: carvediloL 6.25 MG TABLET PO (08:37)
[2024-03-23] MEDS: CITALOPRAM HYDROBROMIDE 20 MG TABLET 40 MG PO (08:38)
--- NOTE | 2024-03-23 10:15 | PM.CNNEP ---
Assessment and Plan Assessment and plan (1) RENE (acute kidney injury): Code(s): N17.9 - Acute kidney failure, unspecified Status: Acute History of Present Illness Reason for Consult Consult date: 03/23/24 Reason for consult: acute renal failure Chief Complaint Chief complaint: Acute decompensated liver failure Review of Systems Review of Systems: As per HPI. 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 Family History Family History Father Acute myocardial infarction Diabetes mellitus Grandparent Acute myocardial infarction Mother Chronic obstructive pulmonary disease Social History Social History Smoking status: Never smoker Second hand tobacco smoke exposure: Yes Alcohol intake: never Substance use: never Do You Feel Safe in your Home?: Yes Lack of Transportation: No Lack of Food: Never True Current Housing: I Have Housing Concerned About Future Housing: No Difficulty Paying Gas/Electric Bills: No Difficulty Paying for Meds: No Currently Unemployed: No Education: Master's Degree or Higher Difficulty w/ Childcare or Family Care: No Gender identity (if verbalized by the patient): Female Spiritual care concerns: No Meds Home Medications and Allergies Home Medications Medication Instructions Recorded Confirmed Type citalopram 20 mg tablet 40 mg PO DAILY 09/22/19 03/21/24 History levothyroxine 112 mcg tablet 100 mcg PO DAILY 09/22/19 03/21/24 History lisinopril 20 1 tablet PO DAILY 09/22/19 03/21/24 History mg-hydrochlorothiazide 25 mg tablet carvedilol 6.25 mg tablet 6.25 mg PO DAILY 03/21/24 03/21/24 History insulin degludec 100 unit/mL (3 10 unit subcut DAILY 03/21/24 03/21/24 History mL) subcutaneous pen (Tresiba FlexTouch U-100 insulin) midodrine 5 mg tablet 1 mg PO BID PRN Hypotension 03/21/24 03/21/24 History ondansetron 4 mg disintegrating 4 mg PO Q6H PRN nausea/vomiting 03/21/24 03/21/24 History tablet pantoprazole 40 mg tablet,delayed 40 mg PO DAILY 03/21/24 03/21/24 History release pen needle, diabetic 32 gauge x 03/21/24 03/21/24 History 5/32 (BD Darya 2nd Gen Pen Needle) spironolactone 25 mg tablet 25 mg PO QID PRN swelling 03/21/24 03/21/24 History trazodone 50 mg tablet 50 mg PO HS 03/21/24 03/21/24 History Allergies Allergy/AdvReac Type Severity Reaction Status Date / Time succinylcholine Allergy Unknown Verified 03/21/24 00:10 Sulfa (Sulfonamide AdvReac Unknown Verified 03/21/24 00:10 Antibiotics) Vital Signs Vital Signs Temp Pulse Resp BP Pulse Ox O2 Del Method 03/23/24 08:35 Room Air 03/23/24 08:37 74 03/23/24 04:15 98.7 F 72 20 111/62 100 03/22/24 20:30 97.7 F 77 20 133/55 L 98 03/22/24 16:01 98.2 F 67 16 110/69 100 03/22/24 15:20 98.2 F 71 16 108/69 99 03/22/24 15:20 98.0 F 66 20 114/70 100 03/22/24 14:19 97.6 F 69 16 121/57 L 100 03/22/24 14:00 98.1 F 69 18 122/49 L 100 03/22/24 14:03 98.1 F 69 18 122/49 L Exam Narrative: GENERAL APPEARANCE: well developed well nourished female in no acute distress HEENT: normocephalic, atraumatic, scleral jaundice, nares patient NECK: no lymphadenopathy, thyromegaly, or JVD MOUTH: normal lips, teeth, and gums CARDIOVASCULAR: RRR, normal S1 and S2, no rub RESPIRATORY: clear to auscultation ABDOMEN: soft, nontender, mild distension, positive bowel sounds present EXTREMITIES: no evidence of cyanosis, clubbing, or edema NEUROLOGICAL: alert and oriented x 3; CN II - XII intact bilaterally; no focal deficits noted Results Lab Results 03/23/24 05:48 03/23/24 05:48 Lab results: Most recent lab results Calcium 8.8 mg/dL (8.4-10.2) 03/23/24 05:48 Magnesium 1.9 mg/dL (1.6-2.3) 03/21/24 06:26
--- NOTE | 2024-03-23 10:47 | PM.IMPN ---
Subjective Date/time seen: 03/23/24 10:47 Review of Systems Review of Systems: All systems reviewed & are unremarkable except as noted in HPI and below Objective Data Vital Signs Vital Signs: Vital Signs - 24 hr 03/22/24 14:03 03/22/24 14:00 03/22/24 14:19 Temperature 98.1 F 98.1 F 97.6 F Pulse Rate 69 69 69 Respiratory Rate 18 18 16 Blood Pressure 122/49 L 122/49 L 121/57 L Pulse Oximetry 100 100 Oxygen Delivery 03/22/24 15:20 03/22/24 15:20 03/22/24 16:01 Temperature 98.0 F 98.2 F 98.2 F Pulse Rate 66 71 67 Respiratory Rate 20 16 16 Blood Pressure 114/70 108/69 110/69 Pulse Oximetry 100 99 100 Oxygen Delivery 03/22/24 20:30 03/23/24 04:15 03/23/24 08:37 Temperature 97.7 F 98.7 F Pulse Rate 77 72 74 Respiratory Rate 20 20 Blood Pressure 133/55 L 111/62 Pulse Oximetry 98 100 Oxygen Delivery 03/23/24 08:35 Temperature Pulse Rate Respiratory Rate Blood Pressure Pulse Oximetry Oxygen Delivery Room Air Intake/Output Intake/Output: Intake & Output 03/20/24 03/21/24 03/22/24 03/23/24 23:59 23:59 23:59 23:59 Intake Total 950 1580 390 Output Total 1900 Balance -950 1580 390 Meds/Results Medications: Active Medications Generic Name Dose Route Start Last Admin Trade Name Freq PRN Reason Stop Dose Admin Carvedilol 6.25 mg 03/21/24 09:00 03/23/24 08:37 Carvedilol 6.25 Mg Tablet PO 6.25 mg DAILY JUANJOSE Administration Citalopram Hydrobromide 40 mg 03/21/24 09:00 03/23/24 08:38 Citalopram Hydrobromide 20 Mg Tablet PO 40 mg DAILY JUANJOSE Administration Dextrose 12.5 gm 03/21/24 12:20 Dextrose 50% 25 Gm/50 Ml Syringe IV PUSH PRN PRN Hypoglycemia Protocol Glucagon 1 mg 03/21/24 12:20 Glucagon For Inj 1 Mg Vial IM PRN PRN Hypoglycemia Protocol Glucose 15 gm 03/21/24 12:20 Glucose Oral Gel 15 Gm Of Glucse In 37.5 Gm Tube PO PRN PRN Hypoglycemia Protocol Dextrose 1,000 mls @ 100 mls/hr 03/21/24 12:20 Dextrose 5% 1,000 Ml IVPB PRN PRN Hypoglycemia Protocol Ceftriaxone Sodium 2 gm in 100 mls @ 200 mls/hr 03/22/24 11:00 03/22/24 12:04 Rocephin 2 Gm/Ns 100 Ml IVPB Infused Q24H JUANJOSE Infusion Levothyroxine Sodium 100 mcg 03/21/24 06:30 03/23/24 06:51 Levothyroxine Sodium 100 Mcg Tablet PO 100 mcg DAILY@0630 JUANJOSE Administration Midodrine 5 mg 03/21/24 04:28 Midodrine Hcl 2.5 Mg Tablet PO BID PRN Hypotension Miscellaneous Information 0 each 03/21/24 00:01 Midodrine-Please Give Specific Parameter For Hypotension XX 04/20/24 00:00 CLARIFY JUANJOSE Pantoprazole Sodium 40 mg 03/22/24 17:00 03/23/24 08:37 Pantoprazole 40 Mg Tablet PO 40 mg BID JUANJOSE Administration Perflutren Lipid Microsphere 0 ml 03/21/24 07:26 Perflutren Lipid Microspheres 1.5 Ml Vial Diluted To 10 Ml Total Volume IV PUSH 03/24/24 07:26 ONCE PRN adequate visualization Protocol Trazodone HCl 50 mg 03/21/24 21:00 03/22/24 19:58 Trazodone Hcl 50 Mg Tablet PO 50 mg HS JUANJOSE Administration Radiology Results: ITS Impressions Chest X-Ray 03/20/24 20:42 IMPRESSION: Cardiomegaly with congestive kendra. Cardiac decompensation is not excluded. No other definite abnormality. Abdomen/Pelvis CT 03/20/24 23:07 IMPRESSION: 1. Liver cirrhosis. 2. Splenomegaly 3. Gross ascites. 4. Portal hypertension Paracentesis Ultrasound 03/21/24 12:21 IMPRESSION: 1. Successful ultrasound-guided paracentesis yielding 1900 mL of yellow fluid. MRCP 03/22/24 13:22 IMPRESSION: 1. Cirrhosis of the liver with portal venous hypertension. 2. Moderate volume of ascites. Labs Labs: Laboratory Results - last 24 hr 03/22/24 03/22/24 03/22/24 09:01 11:30 17:13 WBC RBC Hgb Hct MCV MCH MCHC RDW Plt Count MPV Immature Gran % (Auto) Neut % (Auto) Lymph % (Auto) Callahan % (Auto) Eos % (Auto) Baso % (Auto) Lymph # (Auto) [place]ahan # (Auto) Eos # (Auto) Baso # (Auto) Abs Immat Gran (auto) Absolute Neuts (auto) Absolute Nucleated RBC Total Counted Neutrophils % (Manual) Band Neutrophils % Lymphocytes % (Manual) Eosinophils % (Manual) Nucleated RBC % Abs Neuts (Manual) Abs Lymphs (Manual) Absolute Eos (Manual) Platelet Estimate % Immature Plt Fraction Hypochromasia Anisocytosis Target Cells Ovalocytes Karolyn Cells Schistocytes Sodium Potassium Chloride Carbon Dioxide Anion Gap BUN Creatinine Estim Creat Clear Calc Estimated GFR Glucose POC Capillary Glucose 115 H 227 H Calcium Total Bilirubin AST ALT Alkaline Phosphatase Total Protein Albumin Blood Type AB Positive Antibody Screen Negative Crossmatch See Detail 03/22/24 03/23/24 03/23/24 20:36 05:48 07:35 WBC 1.4 L* RBC 2.53 L Hgb 7.9 L Hct 24.2 L MCV 95.7 MCH 31.2 MCHC 32.6 RDW 19.1 H Plt Count 47 L MPV 10.6 H Immature Gran % (Auto) Not Reportable Neut % (Auto) Not Reportable Lymph % (Auto) Not Reportable Callahan % (Auto) Not Reportable Eos % (Auto) Not Reportable Baso % (Auto) Not Reportable Lymph # (Auto) Not Reportable [place]ahan # (Auto) Not Reportable Eos # (Auto) Not Reportable Baso # (Auto) Not Reportable Abs Immat Gran (auto) Not Reportable Absolute Neuts (auto) Not Reportable Absolute Nucleated RBC Not Reportable Total Counted 100 Neutrophils % (Manual) 58 Band Neutrophils % 5 Lymphocytes % (Manual) 32 Eosinophils % (Manual) 5 H Nucleated RBC % Not Reportable Abs Neuts (Manual) 0.88 L Abs Lymphs (Manual) 0.44 L Absolute Eos (Manual) 0.07 Platelet Estimate Decreased % Immature Plt Fraction 3.2 Hypochromasia 1+ Anisocytosis 1+ Target Cells 1+ Ovalocytes 1+ Karolyn Cells 1+ Schistocytes Rare Sodium 139 Potassium 4.3 Chloride 107 Carbon Dioxide 23 Anion Gap 9 BUN 16 Creatinine 1.20 H Estim Creat Clear Calc 48 Estimated GFR 46 L Glucose 119 H POC Capillary Glucose 108 H 138 H Calcium 8.8 Total Bilirubin 8.8 H AST 61 H ALT 62 H Alkaline Phosphatase 98 Total Protein 6.0 L Albumin 3.9 Blood Type Antibody Screen Crossmatch
[2024-03-23] MEDS: cefTRIAXone 2 GM/NS 100 ML 2 GM/100 ML BAG IVPB (11:12)
[2024-03-23 11:36] LABS: Glucose Point of Care 217 mg/dl (65-105)
--- NOTE | 2024-03-23 12:52 | P.PNGI_ITS ---
Progress Note: A&P Assessment and Plan (1) Acute renal failure: Qualifiers: Acute renal failure type: unspecified Qualified Code(s): N17.9 - Acute kidney failure, unspecified Code(s): N17.9 - Acute kidney failure, unspecified Status: Acute (2) Liver cirrhosis: Code(s): K74.60 - Unspecified cirrhosis of liver Status: Acute Assessment and Plan: Patient with severely decompensated cirrhosis and RENE, although after 2 days of albumin adminsitration her creatinine is 1.2 today and her bilirrubin 8.8 compared to 12 at at admission (reflecting beneficial effects of albumin, oncotic pressure improvement and better kidney and liver perfusion, and anti inflammatory properties). Coordinations made with hepatology transplant at [facility], they will call patient for appt next week, since she is currently severely decompensated. Her ascites will have to be managed with paracentesis only, since diuretics are contraindicated at this point and TIPS is not an option because of pulmonary hypertension found on echocardiogram and very high MELD 3.0 score (35). She can be discharged today. Do not restart Carvedilol, which she was taking prior to admission. Subjective Date/time seen: 03/23/24 12:52 Interval history: Pt had some rectal bleeding this am. probably hemorroidal. Objective Data Vital Signs Vital Signs: Vital Signs - 24 hr 03/22/24 14:03 03/22/24 14:00 03/22/24 14:19 Temperature 98.1 F 98.1 F 97.6 F Pulse Rate 69 69 69 Respiratory Rate 18 18 16 Blood Pressure 122/49 L 122/49 L 121/57 L Pulse Oximetry 100 100 Oxygen Delivery 03/22/24 15:20 03/22/24 15:20 03/22/24 16:01 Temperature 98.0 F 98.2 F 98.2 F Pulse Rate 66 71 67 Respiratory Rate 20 16 16 Blood Pressure 114/70 108/69 110/69 Pulse Oximetry 100 99 100 Oxygen Delivery 03/22/24 20:30 03/23/24 04:15 03/23/24 08:37 Temperature 97.7 F 98.7 F Pulse Rate 77 72 74 Respiratory Rate 20 20 Blood Pressure 133/55 L 111/62 Pulse Oximetry 98 100 Oxygen Delivery 03/23/24 08:35 Temperature Pulse Rate Respiratory Rate Blood Pressure Pulse Oximetry Oxygen Delivery Room Air Intake/Output Intake/Output: Intake & Output 03/20/24 03/21/24 03/22/24 03/23/24 23:59 23:59 23:59 23:59 Intake Total 950 1580 390 Output Total 1900 Balance -950 1580 390 Meds/Results Medications: Active Medications Generic Name Dose Route Start Last Admin Trade Name Aníbalq PRN Reason Stop Dose Admin Carvedilol 6.25 mg 03/21/24 09:00 03/23/24 08:37 Carvedilol 6.25 Mg Tablet PO 6.25 mg DAILY JUANJOSE Administration Citalopram Hydrobromide 40 mg 03/21/24 09:00 03/23/24 08:38 Citalopram Hydrobromide 20 Mg Tablet PO 40 mg DAILY JUANJOSE Administration Dextrose 12.5 gm 03/21/24 12:20 Dextrose 50% 25 Gm/50 Ml Syringe IV PUSH PRN PRN Hypoglycemia Protocol Glucagon 1 mg 03/21/24 12:20 Glucagon For Inj 1 Mg Vial IM PRN PRN Hypoglycemia Protocol Glucose 15 gm 03/21/24 12:20 Glucose Oral Gel 15 Gm Of Glucse In 37.5 Gm Tube PO PRN PRN Hypoglycemia Protocol Dextrose 1,000 mls @ 100 mls/hr 03/21/24 12:20 Dextrose 5% 1,000 Ml IVPB PRN PRN Hypoglycemia Protocol Ceftriaxone Sodium 2 gm in 100 mls @ 200 mls/hr 03/22/24 11:00 03/23/24 11:12 Rocephin 2 Gm/Ns 100 Ml IVPB 200 mls/hr Q24H JUANJOSE Administration Levothyroxine Sodium 100 mcg 03/21/24 06:30 03/23/24 06:51 Levothyroxine Sodium 100 Mcg Tablet PO 100 mcg DAILY@0630 JUANJOSE Administration Midodrine 5 mg 03/21/24 04:28 Midodrine Hcl 2.5 Mg Tablet PO BID PRN Hypotension Miscellaneous Information 0 each 03/21/24 00:01 Midodrine-Please Give Specific Parameter For Hypotension XX 04/20/24 00:00 CLARIFY JUANJOSE Pantoprazole Sodium 40 mg 03/22/24 17:00 03/23/24 08:37 Pantoprazole 40 Mg Tablet PO 40 mg BID JUANJOSE Administration Perflutren Lipid Microsphere 0 ml 03/21/24 07:26 Perflutren Lipid Microspheres 1.5 Ml Vial Diluted To 10 Ml Total Volume IV PUSH 03/24/24 07:26 ONCE PRN adequate visualization Protocol Trazodone HCl 50 mg 03/21/24 21:00 03/22/24 19:58 Trazodone Hcl 50 Mg Tablet PO 50 mg HS JUANJOSE Administration Radiology Results: ITS Impressions Chest X-Ray 03/20/24 20:42 IMPRESSION: Cardiomegaly with congestive kendra. Cardiac decompensation is not excluded. No other definite abnormality. Abdomen/Pelvis CT 03/20/24 23:07 IMPRESSION: 1. Liver cirrhosis. 2. Splenomegaly 3. Gross ascites. 4. Portal hypertension Paracentesis Ultrasound 03/21/24 12:21 IMPRESSION: 1. Successful ultrasound-guided paracentesis yielding 1900 mL of yellow fluid. MRCP 03/22/24 13:22 IMPRESSION: 1. Cirrhosis of the liver with portal venous hypertension. 2. Moderate volume of ascites. Labs Labs: Laboratory Results - last 24 hr 03/22/24 03/22/24 03/22/24 09:01 17:13 20:36 WBC RBC Hgb Hct MCV MCH MCHC RDW Plt Count MPV Immature Gran % (Auto) Neut % (Auto) Lymph % (Auto) Becker % (Auto) Eos % (Auto) Baso % (Auto) Lymph # (Auto) Becker # (Auto) Eos # (Auto) Baso # (Auto) Abs Immat Gran (auto) Absolute Neuts (auto) Absolute Nucleated RBC Total Counted Neutrophils % (Manual) Band Neutrophils % Lymphocytes % (Manual) Eosinophils % (Manual) Nucleated RBC % Abs Neuts (Manual) Abs Lymphs (Manual) Absolute Eos (Manual) Platelet Estimate % Immature Plt Fraction Hypochromasia Anisocytosis Target Cells Ovalocytes [place] Cells Schistocytes Sodium Potassium Chloride Carbon Dioxide Anion Gap BUN Creatinine Estim Creat Clear Calc Estimated GFR Glucose POC Capillary Glucose 227 H 108 H Calcium Total Bilirubin AST ALT Alkaline Phosphatase Total Protein Albumin Blood Type AB Positive Antibody Screen Negative Crossmatch See Detail 03/23/24 03/23/24 03/23/24 05:48 07:35 11:28 WBC 1.4 L* RBC 2.53 L Hgb 7.9 L Hct 24.2 L MCV 95.7 MCH 31.2 MCHC 32.6 RDW 19.1 H Plt Count 47 L MPV 10.6 H Immature Gran % (Auto) Not Reportable Neut % (Auto) Not Reportable Lymph % (Auto) Not Reportable Becker % (Auto) Not Reportable Eos % (Auto) Not Reportable Baso % (Auto) Not Reportable Lymph # (Auto) Not Reportable Becker # (Auto) Not Reportable Eos # (Auto) Not Reportable Baso # (Auto) Not Reportable Abs Immat Gran (auto) Not Reportable Absolute Neuts (auto) Not Reportable Absolute Nucleated RBC Not Reportable Total Counted 100 Neutrophils % (Manual) 58 Band Neutrophils % 5 Lymphocytes % (Manual) 32 Eosinophils % (Manual) 5 H Nucleated RBC % Not Reportable Abs Neuts (Manual) 0.88 L Abs Lymphs (Manual) 0.44 L Absolute Eos (Manual) 0.07 Platelet Estimate Decreased % Immature Plt Fraction 3.2 Hypochromasia 1+ Anisocytosis 1+ Target Cells 1+ Ovalocytes 1+ [place]xton Cells 1+ Schistocytes Rare Sodium 139 Potassium 4.3 Chloride 107 Carbon Dioxide 23 Anion Gap 9 BUN 16 Creatinine 1.20 H Estim Creat Clear Calc 48 Estimated GFR 46 L Glucose 119 H POC Capillary Glucose 138 H 217 H Calcium 8.8 Total Bilirubin 8.8 H AST 61 H ALT 62 H Alkaline Phosphatase 98 Total Protein 6.0 L Albumin 3.9 Blood Type Antibody Screen Crossmatch
--- NOTE | 2024-03-23 15:55 | P.DS_ITS ---
DS: Admitting Diagnosis Discharge Date 03/23/24 Admitting Diagnosis My liver labs are 7 times normal DS: Discharge Diagnosis Discharge Diagnosis (1) Volume overload: Code(s): E87.70 - Fluid overload, unspecified Status: Acute (2) Liver cirrhosis: Code(s): K74.60 - Unspecified cirrhosis of liver Status: Acute (3) Pancytopenia: Code(s): D61.818 - Other pancytopenia Status: Acute (4) Elevated liver enzymes: Code(s): R74.8 - Abnormal levels of other serum enzymes Status: Acute (5) Hepatorenal syndrome with acute kidney injury: Code(s): K76.7 - Hepatorenal syndrome; N17.9 - Acute kidney failure, unspecified Status: Acute (6) RENE (acute kidney injury): Code(s): N17.9 - Acute kidney failure, unspecified Status: Acute DS: Summary Hospital Course Hospital Course: This is a 58-year-old female who presented to the hospital on 03/21/2024 with worsening hepatic function and abnormal labs. Workup in the hospital included a chest x-ray which showed cardiomegaly with congestive kendra. CT of the abdomen and pelvis shown liver cirrhosis, splenomegaly, gross ascites, portal hypertension. Initial labs showed a white blood cell count of 2.5, RBC 2.62, hemoglobin 8.4, platelet count 45, eosinophils 5.6, INR 3.3, sodium 135, cr eatinine 1.50, EGFR 36, total bili 12.0, AST 161, ALT 132, alk-phos was 89, troponin negative, lipase 248. UA was obtained and showed trace leukocytes otherwise negative. EKG showed sinus rhythm with a rate of 66, QTC 496. Patient was given midodrine and albumin. GI, Cardiology, and Nephrology were consulted. Echocardiogram showed: Summary 1. Complete two-dimensional, color flow and Doppler transthoracic echocardiogram is performed. 2. Left ventricular chamber dimension is mildly enlarged. 3. Left ventricular systolic function is normal, estimated at 55-60%. 4. There is no increased left ventricular wall thickness. 5. The left ventricular diastolic function is abnormal. 6. Left atrial chamber dimension is mildly enlarged. 7. There is mild aortic valve regurgitation. 8. There is mild mitral valve regurgitation. 9. There is mild to moderate tricuspid valve regurgitation. 10. Moderate pulmonary hypertension, estimated pulmonary arterial systolic pressure is 57 mmHg. 11. There is mild pulmonic regurgitation. 12. The prox ascending aorta size is mildly dilated. Paracentesis drained 1900 ml, paracentesis fluid gram stain no organisms found. MRCP showed no obstructive lesions. Patient received Albumin 50 gm and PRBC's 1 unit. Patient to be seen by [facility] next week to be placed on the liver transplant list. Status at Discharge Functional status at discharge: independent ambulation Overall status at discharge: patient is progressing back to baseline Time Spent with Patient Time attestation: Total time spent providing and/or coordinating discharge services: Time spent: Greater than 30 minutes Exam Const: General: comfortable and no acute distress Eyes: Sclera: scleral abnormality (jaundice) Resp: Effort & Inspection: normal respiratory effort Auscultation: clear to auscultation bilaterally Cardio: Rate: regular rate Rhythm: regular rhythm GI: GI Palp: Yes Soft to palpation Auscultation: normal bowel sounds Skin: Other: jaundice Extrem: General: no pedal edema Psych: Mental Status: mental status grossly normal Affect: normal affect DS: Data Data Completed and Pending Pending studies at discharge: Pending at discharge 03/21/24 00:03 Cytology [PTH] Routine Labs on day of discharge: Labs from last 24 hours 03/23/24 03/23/24 03/23/24 11:28 07:35 05:48 WBC 1.4 L* RBC 2.53 L Hgb 7.9 L Hct 24.2 L MCV 95.7 MCH 31.2 MCHC 32.6 RDW 19.1 H Plt Count 47 L MPV 10.6 H Immature Gran % (Auto) Not Reportable Neut % (Auto) Not Reportable Lymph % (Auto) Not Reportable [place] % (Auto) Not Reportable Eos % (Auto) Not Reportable Baso % (Auto) Not Reportable Lymph # (Auto) Not Reportable [place]ay # (Auto) Not Reportable Eos # (Auto) Not Reportable Baso # (Auto) Not Reportable Abs Immat Gran (auto) Not Reportable Absolute Neuts (auto) Not Reportable Absolute Nucleated RBC Not Reportable Total Counted 100 Neutrophils % (Manual) 58 Band Neutrophils % 5 Lymphocytes % (Manual) 32 Eosinophils % (Manual) 5 H Nucleated RBC % Not Reportable Abs Neuts (Manual) 0.88 L Abs Lymphs (Manual) 0.44 L Absolute Eos (Manual) 0.07 Platelet Estimate Decreased % Immature Plt Fraction 3.2 Hypochromasia 1+ Anisocytosis 1+ Target Cells 1+ Ovalocytes 1+ [place] Cells 1+ Schistocytes Rare Sodium 139 Potassium 4.3 Chloride 107 Carbon Dioxide 23 Anion Gap 9 BUN 16 Creatinine 1.20 H Estim Creat Clear Calc 48 Estimated GFR 46 L Glucose 119 H POC Capillary Glucose 217 H 138 H Calcium 8.8 Total Bilirubin 8.8 H AST 61 H ALT 62 H Alkaline Phosphatase 98 Total Protein 6.0 L Albumin 3.9 Crossmatch 03/22/24 03/22/24 03/22/24 20:36 17:13 09:01 WBC RBC Hgb Hct MCV MCH MCHC RDW Plt Count MPV Immature Gran % (Auto) Neut % (Auto) Lymph % (Auto) [place] % (Auto) Eos % (Auto) Baso % (Auto) Lymph # (Auto) [place] # (Auto) Eos # (Auto) Baso # (Auto) Abs Immat Gran (auto) Absolute Neuts (auto) Absolute Nucleated RBC Total Counted Neutrophils % (Manual) Band Neutrophils % Lymphocytes % (Manual) Eosinophils % (Manual) Nucleated RBC % Abs Neuts (Manual) Abs Lymphs (Manual) Absolute Eos (Manual) Platelet Estimate % Immature Plt Fraction Hypochromasia Anisocytosis Target Cells Ovalocytes Karolyn Cells Schistocytes Sodium Potassium Chloride Carbon Dioxide Anion Gap BUN Creatinine Estim Creat Clear Calc Estimated GFR Glucose POC Capillary Glucose 108 H 227 H Calcium Total Bilirubin AST ALT Alkaline Phosphatase Total Protein Albumin Crossmatch See Detail Preliminary micro results at discharge 03/21/24 11:47 Anaerobic Culture - Preliminary Paracentesis Fluid Aerobic Culture - Preliminary Discharge Plan Discharge Attending physician on discharge: Clark Hernandez Consulting providers: Bill Crooks; Nguyen Ramsey Discharging Clinician: Julia Najera Anticipated Discharge Date/Time: 03/23/24 15:00 Patient Disposition: Home, Self-Care Activity: may shower Diet: low sodium Discharge Instructions: * Follow a low sodium diet * [facility] to call and set up appointment with you to get you on the liver transplant list. Patient Instructions: Antibiotic Form, Cirrhosis of the Liver (DC), Pain Management (DC), Low-Sodium Diet (DC) Stand Alone Forms: General Discharge Information Follow-up/Referrals: Kareem,Matilde Kimble, INSURANCE LICENSING SUPERVISOR [Primary Care Provider] - 1 Week Discharge Medications: Continued citalopram 20 mg tablet 40 mg PO DAILY levothyroxine 112 mcg tablet 100 mcg PO DAILY (DME) pen needle, diabetic [BD Darya 2nd Gen Pen Needle] 32 gauge x 5/32 needle MISCELLANEOUS trazodone 50 mg tablet 50 mg PO HS midodrine 5 mg tablet 1 mg PO BID PRN (Reason: Hypotension) pantoprazole 40 mg tablet,delayed release (DR/EC) 40 mg PO DAILY ondansetron 4 mg tablet,disintegrating 4 mg PO Q6H PRN (Reason: nausea/vomiting) insulin degludec [Tresiba FlexTouch U-100] 100 unit/mL (3 mL) insulin pen 10 unit SUBCUT DAILY Discontinued lisinopril-hydrochlorothiazide 20-25 mg tablet 1 tablet PO DAILY carvedilol 6.25 mg tablet 6.25 mg PO DAILY spironolactone 25 mg tablet 25 mg PO QID PRN (Reason: swelling) Date of admission: 03/21/24 13:39 Primary Care Provider: GuillerminaMatilde Admitting Provider: Damian Vazquez Attending physician on admission: Krystle Oropeza Condition: Improved Hospitalist MIPS Heart Failure (Exclusion) Patient has history of Heart Transplant or Left Ventricular Assistive Device?: No IF YES, STOP HERE Heart Failure (Qualifier) Patient has current or prior documentation of LVEF less than or equal to 40%, or mod/servere depressed LVSF?: No IF NO, STOP HERE
--- NOTE | 2024-03-28 09:29 | PC.NURSE ---
Paracentesis Fluid shows scant growth of Coag negative staph. Jena Najera NP aware.
[2024-03-29 12:23] LABS: LDH Peritoneal Fluid 82 U/L (<63)
[2024-04-01 17:19] LABS: Albumin Peritoneal Fluid 1.3 g/dL; Amylase Peritoneal Fluid 16 U/L; Glucose Peritoneal Fluid 135 mg/dL; Total Protein Peritoneal Fluid <3.0 g/dL
== END 2024-03-23 14:49 | disposition home or self-care (01) | DRG 441 ==
LOC: ANHED 19:25 → ANH3MEDSUR 03-21 01:03
PROVIDERS: Nurse Practitioner Acute Care; Registered Nurse; Admitting Provider Internal Medicine; Emergency Provider Physician Assistant; PCP Nurse Practitioner; Visit Provider Nurse Practitioner Family
DX: K72.90 Hepatic failure, unspecified without coma (principal); K76.7 Hepatorenal syndrome; D61.818 Other pancytopenia; N17.9 Acute kidney failure, unspecified; E87.1 Hypo-osmolality and hyponatremia; R18.8 Other ascites; K76.6 Portal hypertension; K75.81 Nonalcoholic steatohepatitis (NASH); K74.60 Unspecified cirrhosis of liver; E87.70 Fluid overload, unspecified; E11.9 Type 2 diabetes mellitus without complications; E66.9 Obesity, unspecified; E03.9 Hypothyroidism, unspecified; F41.8 Other specified anxiety disorders; G47.00 Insomnia, unspecified; I10 Essential (primary) hypertension; K21.9 Gastro-esophageal reflux disease without esophagitis; Z68.37 Body mass index [BMI] 37.0-37.9, adult; Z86.19 Personal history of other infectious and parasitic diseases; Z79.4 Long term (current) use of insulin
CPT/HCPCS: 36415; 36430; 49083; 71046; 74177; 74183; 76376; 80053; 81001; 82042; 82150; 82945; 82948; 83036; 83615; 83690; 83735; 84157; 84443; 84484; 85025; 85055; 85610; 85730; 86850; 86900; 86901; 86923; 87070; 87075; 87205; 88104; 88108; 88305; 89051; 93005; 93306; 96365; 96366; 99285; A9270; A9577; G0378; J0696; J7050; P9016; P9047; Q9967

== ENCOUNTER 2024-04-27 01:15 | Day surgery (SDC) | payer OTHER, SELFPAY ==
[2024-04-10 09:20] VITALS: BMI 34.0
--- NOTE | 2024-04-10 10:10 | SUR.PREOP ---
Per Dr. Mccarthy, stat CBC and BMP to be drawn on day of procedure when patient arrives in pre op.
[2024-04-27 10:43] VITALS: BP 135/71; PULSE 71; RESP 18; TEMP 36.3; O2SAT 100
[2024-04-27] MEDS: LACTATED RINGERS 1,000 ML 150 ML IV CONT (11:13)
[2024-04-27 11:14] LABS: Glucose Point of Care 142 mg/dl (65-105)
[2024-04-27 11:48] VITALS: BP 94/57; PULSE 75; RESP 16; O2SAT 95
[2024-04-27 11:58] VITALS: BP 118/60; PULSE 72; RESP 18; O2SAT 95
[2024-04-27 12:08] VITALS: BP 120/64; PULSE 75; RESP 18; O2SAT 96
--- NOTE | 2024-04-27 12:10 | WPDANESEPPF ---
Anes - Initial Pre Proc Eval Procedure: Operation Date: 04/27/24 13:00 Proposed Procedures p Screening Colonoscopy - Anthony Sadler MD Date/Time: 04/27/24 12:10 Surgeon: Anthony Sadler MD Pre Op Diagnosis: Screening Patient Data Age: 58 Gender: F Height: 1.57 m Weight: 86.7 kg Last Vital Signs Temp 97.3 F L 04/27/24 10:43 Pulse 71 04/27/24 10:43 Resp 18 04/27/24 10:43 BP 135/71 04/27/24 10:43 Pulse Ox 100 04/27/24 10:43 O2 Del Method Room Air 04/27/24 10:43 Allergies Allergy/AdvReac Type Severity Reaction Status Date / Time succinylcholine Allergy Unknown Verified 04/27/24 10:41 Sulfa (Sulfonamide AdvReac Unknown Verified 04/10/24 09:16 Antibiotics) Home Medications ?Medication ?Instructions ?Recorded ?Confirmed ?Type citalopram 20 mg tablet 40 mg PO DAILY 09/22/19 04/27/24 History levothyroxine 112 mcg tablet 100 mcg PO DAILY 09/22/19 04/27/24 History insulin degludec 100 unit/mL (3 10 unit subcut DAILY 03/21/24 04/27/24 History mL) subcutaneous pen (Tresiba FlexTouch U-100 insulin) midodrine 5 mg tablet 1 mg PO BID PRN Hypotension 03/21/24 04/27/24 History ondansetron 4 mg disintegrating 4 mg PO Q6H PRN nausea/vomiting 03/21/24 04/10/24 History tablet pantoprazole 40 mg tablet,delayed 40 mg PO DAILY 03/21/24 04/27/24 History release pen needle, diabetic 32 gauge x 03/21/24 04/10/24 History 5/32 (BD Darya 2nd Gen Pen Needle) trazodone 50 mg tablet 50 mg PO HS 03/21/24 04/27/24 History Laboratory Tests 04/27/24 10:35 POC Capillary Glucose 142 H mg/dl (65-105) Patient hx anesthesia problems: none Family hx anesthesia problems: none Results Review: All pre-operative results and documents have been reviewed as part of the pre-operative evaluation. 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 Family History Family History Father Acute myocardial infarction Diabetes mellitus Grandparent Acute myocardial infarction Mother Chronic obstructive pulmonary disease Social History Social History Smoking status: Never smoker Second hand tobacco smoke exposure: Yes Alcohol intake: never Substance use: never Substance use type: does not use Do You Feel Safe in your Home?: Yes Lack of Transportation: No Lack of Food: Never True Current Housing: I Have Housing Concerned About Future Housing: No Difficulty Paying Gas/Electric Bills: No Difficulty Paying for Meds: No Currently Unemployed: No Education: Master's Degree or Higher Difficulty w/ Childcare or Family Care: No Living arrangements: alone Gender identity (if verbalized by the patient): Female Spiritual care concerns: No Anes - Eval Final PreProcedure Day of Procedure 04/27/24 12:10 Patient weight: obese Heart: regular rate and rhythm Lungs: clear to auscultation Airway: Mallampati scale class II Neurological: alert and oriented Last oral intake: >/= 8 hours ASA classification: III Emergent: no Anesthetic plan: proceed Anesthesia type and monitoring: general GIVS and standard monitoring Results Review: All pre-operative results and documents have been reviewed as part of the pre-operative evaluation. Informed Consent: The patient's anesthetic plan and its attendant risks and benefits were discussed with the patient/family/POA. Questions were solicited and answers provided to the satisfaction of the patient/family/POA.
--- NOTE | 2024-04-27 12:36 | PM.HPGS ---
History of Present Illness History of Present Illness Consent: Risks, benefits, and alternatives have been discussed and questions answered. Patient agrees to proceed with procedure. 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 Family History Family History Father Acute myocardial infarction Diabetes mellitus Grandparent Acute myocardial infarction Mother Chronic obstructive pulmonary disease Social History Social History Smoking status: Never smoker Second hand tobacco smoke exposure: Yes Alcohol intake: never Substance use: never Substance use type: does not use Do You Feel Safe in your Home?: Yes Lack of Transportation: No Lack of Food: Never True Current Housing: I Have Housing Concerned About Future Housing: No Difficulty Paying Gas/Electric Bills: No Difficulty Paying for Meds: No Currently Unemployed: No Education: Master's Degree or Higher Difficulty w/ Childcare or Family Care: No Living arrangements: alone Gender identity (if verbalized by the patient): Female Spiritual care concerns: No Meds Home Medications and Allergies Home Medications ?Medication ?Instructions ?Recorded ?Confirmed ?Type citalopram 20 mg tablet 40 mg PO DAILY 09/22/19 04/27/24 History levothyroxine 112 mcg tablet 100 mcg PO DAILY 09/22/19 04/27/24 History insulin degludec 100 unit/mL (3 10 unit subcut DAILY 03/21/24 04/27/24 History mL) subcutaneous pen (Tresiba FlexTouch U-100 insulin) midodrine 5 mg tablet 1 mg PO BID PRN Hypotension 03/21/24 04/27/24 History ondansetron 4 mg disintegrating 4 mg PO Q6H PRN nausea/vomiting 03/21/24 04/10/24 History tablet pantoprazole 40 mg tablet,delayed 40 mg PO DAILY 03/21/24 04/27/24 History release pen needle, diabetic 32 gauge x 03/21/24 04/10/24 History /32 (BD Darya 2nd Gen Pen Needle) trazodone 50 mg tablet 50 mg PO HS 03/21/24 04/27/24 History Allergies Allergy/AdvReac Type Severity Reaction Status Date / Time succinylcholine Allergy Unknown Verified 04/27/24 10:41 Sulfa (Sulfonamide AdvReac Unknown Verified 04/10/24 09:16 Antibiotics) Vital Signs Vital Signs - 24 hr 04/27/24 10:43 Temperature 97.3 F L Pulse Rate 71 Respiratory Rate 18 Blood Pressure 135/71 Pulse Oximetry 100 Oxygen Delivery Room Air Exam Const: General: comfortable and no acute distress HENMT: Face/Nose/Sinus: Normal nares present Resp: Auscultation: clear to auscultation bilaterally Cardio: Rate: regular rate Rhythm: regular rhythm GI: Inspection: non-distended GI Palp: Yes Soft to palpation Skin: Other: jaundice Neuro: Speech: normal speech Extrem: General: normal to inspection Psych: Mental Status: mental status grossly normal Assessment and Plan Assessment and plan (1) Colon cancer screening: Code(s): Z12.11 - Encounter for screening for malignant neoplasm of colon Status: Acute Assessment and Plan: colonoscopy
[2024-04-27 13:17] LABS: Glucose Point of Care 122 mg/dl (65-105)
== END 2024-04-27 13:24 | disposition home or self-care (01) ==
PROVIDERS: PCP Nurse Practitioner; Visit Provider Internal Medicine Gastroenterology
PROC: 0DJD8ZZ Inspection of Lower Intestinal Tract, Via Natural or Artificial Opening Endoscopic (ICD-10-PCS; CPT 45378; principal; 2024-04-27 13:00)
DX: Z12.11 Encounter for screening for malignant neoplasm of colon (principal); K63.5 Polyp of colon; K57.30 Diverticulosis of large intestine without perforation or abscess without bleeding; E03.9 Hypothyroidism, unspecified; I10 Essential (primary) hypertension; E11.9 Type 2 diabetes mellitus without complications; K72.90 Hepatic failure, unspecified without coma; N17.9 Acute kidney failure, unspecified; E66.9 Obesity, unspecified; Z68.35 Body mass index [BMI] 35.0-35.9, adult; Z79.4 Long term (current) use of insulin; Z98.890 Other specified postprocedural states; Z82.49 Family history of ischemic heart disease and other diseases of the circulatory system
CPT/HCPCS: 45380; 82948; 88305; J2704; J7120